=== PATIENT | male | born 1955 | race Caucasian/White ===

== ENCOUNTER 2017-10-29 06:17 | Emergency (ER) | payer MEDICARE, OTHER ==
--- NOTE | 2017-10-29 07:09 | EDM.PDOC ---
ED HPI GENERAL MEDICAL PROBLEM - General Chief Complaint: Head Injury Stated Complaint: HEADACHE - History of Present Illness Treatments RN ANGIOGRAPHY: Reports: NSAIDS Frontal Headache Pain Score (Numeric/FACES): 6 - Related Data Allergies Allergy/AdvReac Type Severity Reaction Status Date / Time No Known Allergies Allergy Verified 10/29/17 06:57 Home Meds: Home Meds Cyclobenzaprine [Flexeril] 5 mg PO TID PRN 02/14/14 [History] FLUoxetine HCl [Fluoxetine HCl] 40 cap PO DAILY 02/14/14 [History] Fenofibrate,Micronized [Fenofibrate] 2 cap PO DAILY 02/14/14 [History] Fluticasone/Salmeterol [Advair 250-50 Diskus] 1 puff INH BID 02/14/14 [History] Hydrochlorothiazide/Losartan [Hyzaar 50-12.5 MG] 1 tab PO DAILY 02/14/14 [ History] Lurasidone [Latuda] 20 mg PO DAILY 02/14/14 [History] Omeprazole 20 mg PO BEDTIME 02/14/14 [History] Tamsulosin HCl 1 tab PO QAM 02/14/14 [History] atorvaSTATin [Lipitor] 20 mg PO BEDTIME 02/14/14 [History] buPROPion HCl [Bupropion HCl Sr] 150 mg PO DAILY 02/14/14 [History] traMADol [Ultram] 1 - 2 tab PO Q4HR PRN 02/14/14 [History] Hydrocodone/Acetaminophen [Hydrocodone-Acetaminophen 5-325] 1 tab PO Q6H PRN 02/21 [History] Sennosides/Docusate Sodium [Senokot-S Tablet] 1 tab PO BID 05/07/14 [History] Past Medical History HEENT History: Reports: Hard of Hearing, Sinusitis, Other (See Below) Other HEENT History: poor dentition Cardiovascular History: Reports: CAD, High Cholesterol, Hypertension Respiratory History: Reports: COPD Gastrointestinal History: Reports: GERD Psychiatric History: Reports: Anxiety, Depression Endocrine/Metabolic History: Reports: Obesity/BMI 30+ - Past Surgical History GI Surgical History: Reports: Cholecystectomy Social & Family History - Tobacco Use Smoking Status *Q: Current Every Day Smoker Years of Tobacco use: 30 Packs/Tins Daily: 1 - Caffeine Use Caffeine Use: Reports: Soda - Alcohol Use Days Per Week of Alcohol Use: 0 - Recreational Drug Use Recreational Drug Use: No Course - Vital Signs Last Recorded V/S: Last Vital Signs Temp 36.6 C 10/29/17 06:40 Pulse Resp 19 10/29/17 06:40 BP 125/69 10/29/17 06:40 Pulse Ox 97 10/29/17 06:40 - Orders/Labs/Meds Orders: Active Orders 24 hr Category Date Time Status INFLUENZA A+B AG SCREEN [RM] Stat Lab 10/29/17 07:01 Ordered Ketorolac [Toradol] Med 10/29/17 07:02 Once 30 mg IM ONETIME ONE Departure - Discharge Information Referrals: Darien Haddad MD [Primary Care Provider] - - My Orders Last 24 Hours: My Active Orders 10/29/17 07:01 INFLUENZA A+B AG SCREEN [RM] Stat 10/29/17 07:02 Ketorolac [Toradol] 30 mg IM ONETIME ONE - Assessment/Plan Last 24 Hours: My Active Orders 10/29/17 07:01 INFLUENZA A+B AG SCREEN [RM] Stat 10/29/17 07:02 Ketorolac [Toradol] 30 mg IM ONETIME ONE
--- NOTE | 2017-10-29 07:17 | EDM.PDOC ---
ED HPI GENERAL MEDICAL PROBLEM - General Chief Complaint: Respiratory Problem Stated Complaint: Cough, congestion, migraine Time Seen by Provider: 10/29/17 07:00 Source of Information: Reports: Patient History Limitations: Reports: No Limitations - History of Present Illness INITIAL COMMENTS - FREE TEXT/NARRATIVE: Complains of cough and congestion x 2 days and frontal headache (typical migraine) x 2 hours Duration: Day(s): (2) Location: Reports: Head Quality: Reports: Ache Severity: Moderate Treatments SACK KEEPER: Reports: NSAIDS Frontal Headache Pain Score (Numeric/FACES): 6 - Related Data Allergies Allergy/AdvReac Type Severity Reaction Status Date / Time No Known Allergies Allergy Verified 10/29/17 06:57 Home Meds: Home Meds atorvaSTATin [Lipitor] 20 mg PO BEDTIME 02/14/14 [History] Albuterol [Ventolin HFA] 2 puff INH Q4H PRN 10/29/17 [History] Albuterol/Ipratropium [DuoNeb 3.0-0.5 MG/3 ML] 3 ml NEB BID 10/29/17 [History] Aspirin [Halfprin] 162 mg PO DAILY 10/29/17 [History] Budesonide/Formoterol [Symbicort 160-4.5 MCG] 2 puff INH BID 10/29/17 [History] FLUoxetine [PROzac] 40 mg PO DAILY 10/29/17 [History] Furosemide 20 mg PO DAILY 10/29/17 [History] Gemfibrozil 600 mg PO BIDAC 10/29/17 [History] Hydrochlorothiazide/Losartan [Hyzaar 50-12.5 MG] 1 tab PO DAILY 10/29/17 [ History] Omeprazole 40 mg PO BEDTIME 10/29/17 [History] Zolpidem Tartrate [Ambien] 15 mg PO BEDTIME PRN 10/29/17 [History] atorvaSTATin [Lipitor] 40 mg PO BEDTIME 10/29/17 [History] hydrOXYzine Pamoate [Vistaril] 25 mg PO TID 10/29/17 [History] risperiDONE [Risperdal] 1.5 mg PO BEDTIME 10/29/17 [History] Past Medical History - Past Health History Medical/Surgical History: Denies Medical/Surgical History HEENT History: Reports: Hard of Hearing, Sinusitis, Other (See Below) Other HEENT History: poor dentition Cardiovascular History: Reports: CAD, High Cholesterol, Hypertension Respiratory History: Reports: Asthma, COPD Gastrointestinal History: Reports: GERD Psychiatric History: Reports: Anxiety, Depression Endocrine/Metabolic History: Reports: Obesity/BMI 30+ - Past Surgical History GI Surgical History: Reports: Cholecystectomy Social & Family History - Tobacco Use Smoking Status *Q: Current Every Day Smoker Tobacco Use Within Last Twelve Months: Cigarettes Years of Tobacco use: 30 Packs/Tins Daily: 1 - Caffeine Use Caffeine Use: Reports: Soda - Alcohol Use Days Per Week of Alcohol Use: 0 - Recreational Drug Use Recreational Drug Use: No ED ROS GENERAL - Review of Systems Review Of Systems: See Below Constitutional: Reports: Chills. Denies: Fever HEENT: Reports: Other (congestion) Respiratory: Reports: Cough Cardiovascular: Reports: No Symptoms Endocrine: Reports: No Symptoms GI/Abdominal: Reports: No Symptoms : Reports: No Symptoms Musculoskeletal: Reports: No Symptoms Skin: Reports: No Symptoms Neurological: Reports: Headache (frontal) Psychiatric: Reports: No Symptoms Hematologic/Lymphatic: Reports: No Symptoms Immunologic: Reports: No Symptoms ED EXAM, GENERAL - Physical Exam Exam: See Below Exam Limited By: No Limitations General Appearance: Alert, WD/WN, No Apparent Distress Eye Exam: Bilateral Eye: EOMI, PERRL Nose: Normal Inspection, Normal Mucosa, No Blood Throat/Mouth: Normal Inspection, Normal Lips, Normal Teeth, Normal Gums, Normal Oropharynx, Normal Voice, No Airway Compromise Head: Atraumatic, Normocephalic Neck: Normal Inspection, Supple, Full Range of Motion Respiratory/Chest: No Respiratory Distress, Lungs Clear, Normal Breath Sounds, No Accessory Muscle Use, Chest Non-Tender Cardiovascular: Regular Rate, Rhythm, No Gallop, No JVD, No Murmur, No Rub Neurological: Alert, Oriented Psychiatric: Normal Affect, Normal Mood Skin Exam: Warm, Dry, Intact, Normal Color, No Rash Course - Vital Signs Last Recorded V/S: Last Vital Signs Temp 36.6 C 10/29/17 06:40 Pulse Resp 19 10/29/17 06:40 BP 125/69 10/29/17 06:40 Pulse Ox 97 10/29/17 06:40 - Orders/Labs/Meds Orders: Active Orders 24 hr Category Date Time Status INFLUENZA A+B AG SCREEN [RM] Stat Lab 10/29/17 07:20 Ordered Meds: Medications Discontinued Medications Generic Name Dose Route Start Last Admin Trade Name Joel PRN Reason Stop Dose Admin Ketorolac Tromethamine 30 mg 10/29/17 07:02 10/29/17 07:19 Toradol IM 10/29/17 07:03 30 mg ONETIME ONE Administration - Re-Assessments/Exams Free Text/Narrative Re-Assessment/Exam: 10/29/17 08:08 Headache has improved after Toradol 30mg IM. Departure - Departure Time of Disposition: 08:09 Disposition: Home, Self-Care 01 Condition: Good Clinical Impression: Migraine, Viral URI - Discharge Information Instructions: Migraine Headache, [id number], Upper Respiratory Infection, Adult, [id number] Referrals: Darien Haddad MD [Primary Care Provider] - Forms: ED Department Discharge Additional Instructions: Take OTC Mucinex as needed for congestion and cough - My Orders Last 24 Hours: My Active Orders 10/29/17 07:20 INFLUENZA A+B AG SCREEN [RM] Stat - Assessment/Plan Last 24 Hours: My Active Orders 10/29/17 07:20 INFLUENZA A+B AG SCREEN [RM] Stat
[2017-10-29] MEDS: Ketorolac 30 MG/ML SDV IM ONE (07:19)
[2017-10-29 08:11] VITALS: BP 127/72
== END 2017-10-29 08:18 | disposition home or self-care (01) ==
LOC: FB.ED 06:17
DX: G43.809 Other migraine, not intractable, without status migrainosus (principal); J06.9 Acute upper respiratory infection, unspecified; I25.10 Atherosclerotic heart disease of native coronary artery without angina pectoris; J44.9 Chronic obstructive pulmonary disease, unspecified; E78.00 Pure hypercholesterolemia, unspecified; I10 Essential (primary) hypertension; K21.9 Gastro-esophageal reflux disease without esophagitis; F41.9 Anxiety disorder, unspecified; F32.9 Major depressive disorder, single episode, unspecified; F17.210 Nicotine dependence, cigarettes, uncomplicated; Z79.899 Other long term (current) drug therapy; Z79.82 Long term (current) use of aspirin; Z68.41 Body mass index [BMI] 40.0-44.9, adult
CPT/HCPCS: 87804; 96372; 99282; 99283; J1885

== ENCOUNTER 2019-03-15 06:42 | Day surgery (SDC) | payer MEDICARE, OTHER ==
[2019-03-15] MEDS ORDERED: Propofol 200 MG/20 ML SDV IV ONE (06:43)
[2019-03-15] MEDS ORDERED: Midazolam 1 MG/ML 2 ML SDV IV ONE (06:43)
[2019-03-15] MEDS ORDERED: Sodium Chloride 0.9% 10 ML Syringe FLUSH PRN (07:00)
[2019-03-15] MEDS ORDERED: Lactated Ringers 1,000 ML IV SCH (07:00)
--- NOTE | 2019-03-15 09:07 | PCM.OPNOTE ---
- General Post-Op/Procedure Note Date of Surgery/Procedure: 03/15/19 Operative Procedure(s): c scope with bx Findings: colon polyps: transverse x6, descending x1, sigmoid x1, rectum x1 marginal prep descending colon Pre Op Diagnosis: personal hx of colon polyps Post-Op Diagnosis: transverse x6, descending x1, sigmoid x1, rectum x1 Anesthesia Technique: MAC Primary Surgeon: Gaurav Evans Anesthesia Provider: Alondra Wang Pathology: transverse x6, descending x1, sigmoid x1, rectum x1 Complications: None Condition: Good Free Text/Narrative:: see dictation
[2019-03-15 09:47] VITALS: BP 143/62; PULSE 70
--- NOTE | 2019-03-15 10:46 | OR ---
DATE OF OPERATION: 03/15/2019 SURGEON: Gaurav Evans MD PROCEDURE PERFORMED: Colonoscopy with cold forceps and hot loop snare biopsy. PREOPERATIVE DIAGNOSIS: Personal history of multiple colon polyps. POSTOPERATIVE DIAGNOSIS: Transverse colon polyps x6, descending colon polyps x1, sigmoid colon polyps x2, rectum polyp x1. INDICATIONS FOR PROCEDURE: This is a 63-year-old white male who presented for followup. He has a history of multiple colon polyps in the past. It has been 3 years since his last scope. DESCRIPTION OF OPERATION: After an excellent IV sedation was administered, digital rectal exam was performed. No marked abnormality was noted. Flexible colonoscope was inserted and advanced to the cecum. The following findings were noted. Ascending colon was unremarkable. Transverse colon, a total of 6 polyps were removed within a 4 cm section of the intestine with a combination of cold forceps biopsy and hot loop snare. Descending colon and sigmoid demonstrated area of poor prep with solid stool and liquid stool. We were able to get a view of approximately half of the colon and 1 polyp was removed from the descending colon and 2 polyps removed from the sigmoid. The rectum demonstrated 1 polyp, which was biopsied with cold biopsy forceps. The patient tolerated the procedure well and was taken to recovery in good condition. Results by letter. At this point, it appears he will need a colonoscopy at least in 1 year. /[id number] /MODL
== END 2019-03-15 09:43 | disposition home or self-care (01) ==
LOC: FB.SDS 06:42
PROVIDERS: ATTEND Surgery
DX: Z12.11 Encounter for screening for malignant neoplasm of colon (principal); D12.3 Benign neoplasm of transverse colon; D12.4 Benign neoplasm of descending colon; K63.5 Polyp of colon; K62.1 Rectal polyp; K21.9 Gastro-esophageal reflux disease without esophagitis; K22.70 Barrett's esophagus without dysplasia; I25.10 Atherosclerotic heart disease of native coronary artery without angina pectoris; I10 Essential (primary) hypertension; E78.00 Pure hypercholesterolemia, unspecified; J45.909 Unspecified asthma, uncomplicated; F17.210 Nicotine dependence, cigarettes, uncomplicated; F31.9 Bipolar disorder, unspecified; F41.1 Generalized anxiety disorder; G47.33 Obstructive sleep apnea (adult) (pediatric); G43.909 Migraine, unspecified, not intractable, without status migrainosus; G25.81 Restless legs syndrome; N40.0 Benign prostatic hyperplasia without lower urinary tract symptoms; M19.90 Unspecified osteoarthritis, unspecified site; Z86.010 Personal history of colon polyps; Z79.82 Long term (current) use of aspirin; Z79.51 Long term (current) use of inhaled steroids; Z79.899 Other long term (current) drug therapy
CPT/HCPCS: 00811; 45380; 45385; 88305; J2250; J2704; J7120

== ENCOUNTER 2019-04-04 06:37 | Day surgery (SDC) | payer MEDICARE, OTHER ==
[2019-04-04] MEDS ORDERED: fentaNYL 100 MCG/2 ML SDV IV ONE (06:38)
[2019-04-04] MEDS ORDERED: Propofol 200 MG/20 ML SDV IV ONE (06:38)
[2019-04-04] MEDS ORDERED: Ondansetron 4 MG/2 ML SDV IVPUSH ONE (06:38)
[2019-04-04] MEDS ORDERED: Bupivacaine 0.5% 10 ML SDV INJECT ONE (06:38)
[2019-04-04] MEDS ORDERED: Midazolam 1 MG/ML 2 ML SDV IV ONE (06:38)
[2019-04-04] MEDS ORDERED: Dexamethasone 4 MG/ML 5 ML MDV IVPUSH ONE (06:38)
[2019-04-04] MEDS ORDERED: Ketorolac 30 MG/ML SDV IVPUSH ONE (06:38)
[2019-04-04] MEDS ORDERED: Sodium Chloride 0.9% 10 ML Syringe FLUSH PRN (06:45)
[2019-04-04] MEDS ORDERED: Lactated Ringers 1,000 ML IV SCH (06:45)
[2019-04-04] MEDS ORDERED: Bupivacaine 0.5% 30 ML SDV INJECT ONE (08:33)
--- NOTE | 2019-04-04 09:08 | PCM.OPNOTE ---
- General Post-Op/Procedure Note Date of Surgery/Procedure: 04/04/19 Operative Procedure(s): excision of sqcca in situ of right middle finger Findings: 1.5 x 2 cm lesion with 1 mm margin Pre Op Diagnosis: SqCCa in situ right middle finger. mip joint Post-Op Diagnosis: Same Anesthesia Technique: Local (3 ml 1 % lido with 0.5% buvipicaine over donor site ), MAC Primary Surgeon: Gaurav Evans Anesthesia Provider: Darien Mohan Pathology: 1.5 x 2 cm lesion with 1 mm margin Complications: None Condition: Good Free Text/Narrative:: see dictation
[2019-04-04] MEDS ORDERED: Acetaminophen/Codeine 300-30 MG Tab PO PRN (09:10)
[2019-04-04 10:04] VITALS: BP 126/78; PULSE 73
--- NOTE | 2019-04-04 15:16 | OR ---
DATE OF OPERATION: 04/04/2019 SURGEON: Gaurav Evans MD PROCEDURE PERFORMED: Excision of squamous cell carcinoma in situ of his right middle finger and full-thickness skin graft. 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 INDICATIONS FOR PROCEDURE: This is a 63-year-old white male with a 40 pack year smoking history. He has a growth over his MIP joint on the right and on the volar surface of the right hand. This is over the area where he has been resting his cigarette. Punch biopsy was obtained and revealed squamous cell carcinoma in situ. He was offered and accepted excision of this lesion. INTRAOPERATIVE FINDINGS: The lesion was roughly 1.5 x 2 cm in size. 1 mm margin was made. A digital field block as well as a local MAC was placed by Anesthesia and then 3 mL of 1:1 mixture of 1% lidocaine plain, 0.5% bupivacaine was used for donor site on the dorsum of his right forearm. DESCRIPTION OF OPERATION: After the above-mentioned anesthetic was administered, the patient was prepped and draped in the usual sterile manner. 1 mm margins were marked out and a circular incision was carried out, excising the lesion. Specimen was passed off the field after marking the posterior and distal margins. Bleeding was controlled with electrocautery. Unfortunately, he had some good blood flow. A roughly 1 cm area was marked out on the dorsum of the forearm and after infiltrating with local, an elliptical incision was carried out. This was then passed after trimming off the posterior fat. This full-thickness piece of skin was placed through a 3:1 mesher and then placed on the floor of the graft site. This was then tacked into position with interrupted 3-0 Vicryl. Bolsters were then placed circumferentially around the edges of 3-0 silk. A piece of Xeroform was then placed over the skin graft rather and then a bulky dressing was placed anteriorly and then the silks were tied giving a nice bolster dressing. Then, this finger was wrapped with Kerlix. A bulky Kerlix included all the fingers and then an Akash wrap to prevent shear forces. A Band-Aid was placed over the donor site. The patient tolerated the procedure well and was taken to recovery room in good condition. /[id number] /DUSTINL
== END 2019-04-04 10:10 | disposition home or self-care (01) ==
LOC: FB.SDS 06:37
PROVIDERS: ATTEND Surgery
DX: D04.61 Carcinoma in situ of skin of right upper limb, including shoulder (principal); I25.10 Atherosclerotic heart disease of native coronary artery without angina pectoris; I10 Essential (primary) hypertension; E78.2 Mixed hyperlipidemia; J44.9 Chronic obstructive pulmonary disease, unspecified; K21.9 Gastro-esophageal reflux disease without esophagitis; K22.70 Barrett's esophagus without dysplasia; F17.210 Nicotine dependence, cigarettes, uncomplicated; F41.1 Generalized anxiety disorder; F33.9 Major depressive disorder, recurrent, unspecified; G47.33 Obstructive sleep apnea (adult) (pediatric); G43.909 Migraine, unspecified, not intractable, without status migrainosus; G25.81 Restless legs syndrome; M19.90 Unspecified osteoarthritis, unspecified site; N40.1 Benign prostatic hyperplasia with lower urinary tract symptoms; N13.8 Other obstructive and reflux uropathy; R73.03 Prediabetes; E66.01 Morbid (severe) obesity due to excess calories; Z68.42 Body mass index [BMI] 45.0-49.9, adult; Z99.89 Dependence on other enabling machines and devices; Z79.82 Long term (current) use of aspirin; Z79.899 Other long term (current) drug therapy
CPT/HCPCS: 00400-QZ; 88305; J1100; J1885; J2250; J2405; J2704; J3010; J3490; J7120

== ENCOUNTER 2019-08-17 03:01 | Emergency (ER) | payer MEDICARE, OTHER ==
[2019-08-17 03:24] VITALS: BP 156/83; PULSE 78
--- NOTE | 2019-08-17 03:33 | EDM.PDOC ---
ED HPI GENERAL MEDICAL PROBLEM - General Chief Complaint: Chest Pain Stated Complaint: chest pain Time Seen by Provider: 08/17/19 03:23 Source of Information: Reports: Patient History Limitations: Reports: No Limitations - History of Present Illness INITIAL COMMENTS - FREE TEXT/NARRATIVE: 64-year-old male with onset of sharp pains in his upper abdomen that seem to come and go. They began while he was sitting and watching TV. He does have a dull pain underneath that is and has been present for the past 3-4 hours he also has intermittent spikes of pain that are sharp. He rates the pain as a 6/ 10. Nothing really seemed to bring the pain on. He doesn't really seem to have anything that makes the pain better or worse. He has been eating and drinking normally. He has had no new cough. He does have a frequent cough that he describes as a smoker's cough. He does not feel that he is having any more shortness of breath than normal. He's had no nausea or vomiting. No fevers. He has been eating and drinking normally and eating and drinking did not seem to have any effect on this pain as well. No back pain. No weakness or dizziness. No other associated signs or symptoms. There are no other modifying factors. Onset: Today (3-4 hours ago), Gradual (With worsening with time) Duration: Getting Worse Location: Reports: Abdomen Quality: Reports: Ache, Sharp Severity: Moderate Improves with: Reports: None Worsens with: Reports: None Associated Symptoms: Reports: No Other Symptoms Treatments [employer]: Reports: Other (see below) (Nothing) - Related Data Allergies Allergy/AdvReac Type Severity Reaction Status Date / Time No Known Allergies Allergy Verified 08/17/19 03:24 Home Meds: Home Meds Aspirin [Halfprin] 81 mg PO DAILY 10/29/17 [History] Budesonide/Formoterol [Symbicort 160-4.5 MCG] 2 puff INH BID 10/29/17 [History] FLUoxetine [PROzac] 40 mg PO DAILY 10/29/17 [History] Furosemide 20 mg PO DAILY 10/29/17 [History] Gemfibrozil 600 mg PO BIDAC 10/29/17 [History] Hydrochlorothiazide/Losartan [Hyzaar 50-12.5 MG] 1 tab PO DAILY 10/29/17 [ History] Omeprazole 40 mg PO BEDTIME 10/29/17 [History] atorvaSTATin [Lipitor] 80 mg PO BEDTIME 10/29/17 [History] risperiDONE [Risperdal] 3 mg PO BEDTIME 10/29/17 [History] Gabapentin [Neurontin] 900 mg PO BEDTIME 03/14/19 [History] Multivitamins [Tab-A-Marisa] 1 each PO DAILY 03/14/19 [History] SUMAtriptan [Imitrex] 50 mg PO ASDIRECTED 03/14/19 [History] polyethylene glycoL 3350 [MiraLAX] 17 gm PO BID #1 cont 08/17/19 [Rx] Past Medical History HEENT History: Reports: Hard of Hearing, Impaired Vision, Sinusitis, Other (See Below) Other HEENT History: poor dentition, Epps's esophagus Cardiovascular History: Reports: CAD, High Cholesterol, Hypertension Other Cardiovascular History: CORONARY ATHEROSCLEROSIS Respiratory History: Reports: Asthma, COPD, Sleep Apnea Gastrointestinal History: Reports: Colon Polyp, GERD Other Gastrointestinal History: DIASTASIS OF RECTUS ABDOMINIS, EPPS'S ESPHAGUS W/ LOW GRADE DYSPLASIA Musculoskeletal History: Reports: Arthritis Other Musculoskeletal History: DEGENERATIVE DISC DISEASE, PERIODIC LIMB MOVEMENT , DIASTASIS OF RECTUS ABDOMINIS Neurological History: Reports: Migraines Other Neuro History: INSOMNIA Psychiatric History: Reports: Addiction, Anxiety, Bipolar, Depression Endocrine/Metabolic History: Reports: Obesity/BMI 30+ Other Endocrine/Metabolic History: PRE-DIABETIC - Infectious Disease History Infectious Disease History: Reports: Chicken Pox, Measles, Mumps - Past Surgical History GI Surgical History: Reports: Cholecystectomy, Colonoscopy, EGD, ERCP Other GI Surgeries/Procedures: KNEE SURGERY Other Male Surgeries/Procedures: IMPOTENCE OF ORGANIC ORIGIN, HYPERTROPHY OF PROSTATE W/ URINARY OBSTRUCTION, LUTS Musculoskeletal Surgical History: Reports: Arthroscopic Knee Social & Family History - Tobacco Use Smoking Status *Q: Current Every Day Smoker - Caffeine Use Caffeine Use: Reports: Soda - Alcohol Use Alcohol Use History: No - Living Situation & Occupation Living situation: Reports: Alone Occupation: Disabled ED ROS GENERAL - Review of Systems Review Of Systems: See Below Constitutional: Reports: No Symptoms HEENT: Reports: No Symptoms Respiratory: Reports: No Symptoms Cardiovascular: Reports: No Symptoms Endocrine: Reports: No Symptoms GI/Abdominal: Reports: Abdominal Pain. Denies: Nausea, Vomiting : Reports: No Symptoms Musculoskeletal: Reports: No Symptoms Skin: Reports: No Symptoms Neurological: Reports: No Symptoms ED EXAM, GENERAL - Physical Exam Exam: See Below Exam Limited By: No Limitations General Appearance: Alert, WD/WN, Moderate Distress Eye Exam: Bilateral Eye: EOMI, Normal Inspection, PERRL Ears: Normal External Exam, Hearing Grossly Normal Ear Exam: Bilateral Ear: Auricle Normal Nose: Normal Inspection, Normal Mucosa, No Blood Throat/Mouth: Normal Inspection, Normal Lips, Normal Oropharynx, Normal Voice, No Airway Compromise Head: Atraumatic, Normocephalic Neck: Normal Inspection, Supple, Non-Tender, Full Range of Motion Respiratory/Chest: No Respiratory Distress, No Accessory Muscle Use, Chest Non- Tender, Wheezing (Somewhat decreased air movement) Cardiovascular: Normal Peripheral Pulses, Regular Rate, Rhythm, No Murmur Peripheral Pulses: 2+: Radial (L), Radial (R), Dorsalis Pedis (L), Dorsalis Pedis (R) GI/Abdominal: Normal Bowel Sounds, Soft, Non-Tender, No Mass, Other (Protuberant ) Back Exam: Normal Inspection, Full Range of Motion Extremities: Normal Range of Motion, Normal Capillary Refill, Pedal Edema ( Trace to 1+ bilaterally) Neurological: Alert, Oriented, CN II-XII Intact, Normal Cognition, No Motor/ Sensory Deficits Skin Exam: Warm, Dry, Intact, Normal Color, No Rash EKG INTERPRETATION EKG Date: 08/17/19 Time: 03:07 Rhythm: NSR Rate (Beats/Min): 72 [place]: Normal P-Wave: Present QRS: Normal ST-T: Normal QT: Normal Comparison: No Change (No change from EKG performed on 03/20/2015.) EKG Interpretation Comments: 08/17/2019, 6:11 AM repeat EKG performed at this time shows a normal sinus rhythm with a rate of 78. There is a normal axis. The QTc is slightly prolonged but really there is no significant change from this EKG versus the previous EKG done today. Course - Vital Signs Last Recorded V/S: Last Vital Signs Temp 36.4 C 08/17/19 03:10 Pulse 78 08/17/19 03:10 Resp 16 08/17/19 03:10 BP 156/83 H 08/17/19 03:10 Pulse Ox 98 08/17/19 03:10 - Orders/Labs/Meds Orders: Active Orders 24 hr Category Date Time Status EKG Documentation Completion [RC] ASDIRECTED Care 08/17/19 03:47 Active EKG Documentation Completion [RC] ASDIRECTED Care 08/17/19 05:54 Active RT Aerosol Therapy [RC] ASDIRECTED Care 08/17/19 04:53 Active Abdomen Pelvis w Cont [CT] Stat Exams 08/17/19 04:57 Taken Chest 2V [CR] Stat Exams 08/17/19 03:45 Taken CULTURE URINE [RM] Stat Lab 08/17/19 06:34 Ordered Sodium Chloride 0.9% [Saline Flush] Med 08/17/19 03:45 Active 10 ml FLUSH ASDIRECTED PRN Peripheral IV Insertion Adult [OM.PC] Routine Oth 08/17/19 03:45 Ordered EKG 12 Lead [EK] Routine Ther 08/17/19 03:45 Ordered EKG 12 Lead [EK] Routine Ther 08/17/19 05:53 Ordered Medication Orders Sodium Chloride (Saline Flush) 10 ml FLUSH ASDIRECTED PRN PRN Reason: Keep Vein Open Last Admin: 08/17/19 06:06 Dose: 10 ml Admin: 08/17/19 05:10 Dose: 10 ml Admin: 08/17/19 05:05 Dose: 10 ml Labs: Laboratory Tests 08/17/19 08/17/19 08/17/19 Range/Units 03:55 03:55 03:55 WBC 10.8 (4.5-12.0) X10-3/uL RBC 4.48 (4.30-5.75) x10(6)uL Hgb 14.2 (13.5-17.8) g/dL Hct 42.0 (30.0-51.3) % MCV 93.9 (80-96) fL MCH 31.8 (27.7-33.6) pg MCHC 33.9 (32.2-35.4) g/dL RDW 13.8 (11.5-15.5) % Plt Count 335 (125-369) X10(3)uL MPV 7.5 (7.4-10.4) fL Neut % (Auto) 70.6 (46-82) % Lymph % (Auto) 20.2 (13-37) % Mathews % (Auto) 7.4 (4-12) % Eos % (Auto) 1 (1.0-5.0) % Baso % (Auto) 1 (0-2) % Neut # (Auto) 7.6 (1.6-8.3) # Lymph # (Auto) 2.2 (0.6-5.0) # Mathews # (Auto) 0.8 (0.0-1.3) # Eos # (Auto) 0.1 (0.0-0.8) # Baso # (Auto) 0.1 (0.0-0.2) # Sodium 144 (135-145) mmol/L Potassium 3.4 L (3.5-5.3) mmol/L Chloride 104 (100-110) mmol/L Carbon Dioxide 29 (21-32) mmol/L BUN 17 (7-18) mg/dL Creatinine 1.2 (0.70-1.30) mg/dL Est Cr Clr Drug Dosing TNP Estimated GFR (MDRD) > 60 (>60) BUN/Creatinine Ratio 14.2 (9-20) Glucose 149 H (80-116) mg/dL Calcium 8.9 (8.6-10.2) mg/dL Total Bilirubin 0.3 (0.1-1.3) mg/dL AST 16 (5-25) IU/L ALT 27 (12-36) U/L Alkaline Phosphatase 87 (56-112) IU/L Troponin I 7.6 (4.0-60.3) pg/mL Total Protein 7.4 (6.0-8.0) g/dL Albumin 3.8 (3.2-4.6) g/dL Globulin 3.6 g/dL Albumin/Globulin Ratio 1.1 Lipase 153 (73-393) U/L Urine Color (YELLOW) Urine Appearance (CLEAR) Urine pH (5.0-6.5) Ur Specific [place] (1.010-1.025) Urine Protein (NEGATIVE) mg/dL Urine Glucose (UA) (NORMAL) mg/dL Urine Ketones (NEGATIVE) mg/dL Urine Occult Blood (NEGATIVE) Urine Nitrite (NEGATIVE) Urine Bilirubin (NEGATIVE) Urine Urobilinogen (NEGATIVE) mg/dL Ur Leukocyte Esterase (NEGATIVE) Urine RBC (0-5) Urine WBC (0-5) Ur Squamous Epith Cells (NS,R,O) Urine Bacteria (NS) 08/17/19 08/17/19 Range/Units 04:35 06:05 WBC (4.5-12.0) X10-3/uL RBC (4.30-5.75) x10(6)uL Hgb (13.5-17.8) g/dL Hct (30.0-51.3) % MCV (80-96) fL MCH (27.7-33.6) pg MCHC (32.2-35.4) g/dL RDW (11.5-15.5) % Plt Count (125-369) X10(3)uL MPV (7.4-10.4) fL Neut % (Auto) (46-82) % Lymph % (Auto) (13-37) % Mathews % (Auto) (4-12) % Eos % (Auto) (1.0-5.0) % Baso % (Auto) (0-2) % Neut # (Auto) (1.6-8.3) # Lymph # (Auto) (0.6-5.0) # Mathews # (Auto) (0.0-1.3) # Eos # (Auto) (0.0-0.8) # Baso # (Auto) (0.0-0.2) # Sodium (135-145) mmol/L Potassium (3.5-5.3) mmol/L Chloride (100-110) mmol/L Carbon Dioxide (21-32) mmol/L BUN (7-18) mg/dL Creatinine (0.70-1.30) mg/dL Est Cr Clr Drug Dosing Estimated GFR (MDRD) (>60) BUN/Creatinine Ratio (9-20) Glucose (80-116) mg/dL Calcium (8.6-10.2) mg/dL Total Bilirubin (0.1-1.3) mg/dL AST (5-25) IU/L ALT (12-36) U/L Alkaline Phosphatase (56-112) IU/L Troponin I 7.8 (4.0-60.3) pg/mL Total Protein (6.0-8.0) g/dL Albumin (3.2-4.6) g/dL Globulin g/dL Albumin/Globulin Ratio Lipase (73-393) U/L Urine Color Yellow (YELLOW) Urine Appearance Clear (CLEAR) Urine pH 6.0 (5.0-6.5) Ur Specific [place] 1.025 (1.010-1.025) Urine Protein Negative (NEGATIVE) mg/dL Urine Glucose (UA) Normal (NORMAL) mg/dL Urine Ketones Negative (NEGATIVE) mg/dL Urine Occult Blood Moderate H (NEGATIVE) Urine Nitrite Positive H (NEGATIVE) Urine Bilirubin Negative (NEGATIVE) Urine Urobilinogen Normal (NEGATIVE) mg/dL Ur Leukocyte Esterase Negative (NEGATIVE) Urine RBC 0-5 (0-5) Urine WBC 0-5 (0-5) Ur Squamous Epith Cells Occasional (NS,R,O) Urine Bacteria Few H (NS) Meds: Medications Generic Name Dose Route Start Last Admin Trade Name Freq PRN Reason Stop Dose Admin Sodium Chloride 10 ml 08/17/19 03:45 08/17/19 06:06 Saline Flush FLUSH 10 ml ASDIRECTED PRN Administration Keep Vein Open Discontinued Medications Generic Name Dose Route Start Last Admin Trade Name Freq PRN Reason Stop Dose Admin Albuterol/Ipratropium 3 ml 08/17/19 04:53 08/17/19 05:00 Duoneb 3.0-0.5 Mg/3 Ml NEB 08/17/19 04:54 3 ml ONETIME ONE Administration Aspirin 324 mg 08/17/19 03:47 08/17/19 03:47 Aspirin PO 08/17/19 03:48 324 mg ONETIME ONE Administration Sodium Chloride 500 mls @ 999 mls/hr 08/17/19 04:56 08/17/19 05:55 Normal Saline IV 08/17/19 05:26 999 mls/hr .BOLUS ONE Administration Iopamidol 100 ml 08/17/19 05:00 08/17/19 05:19 Isovue-370 (76%) IV 08/17/19 05:01 100 ml . DIRECTED ONE Administration Morphine Sulfate 4 mg 08/17/19 04:55 08/17/19 05:07 Morphine IVPUSH 08/17/19 04:56 4 mg ONETIME ONE Administration Morphine Sulfate Confirm 08/17/19 05:07 08/17/19 05:11 Morphine Administered 08/17/19 05:08 Not Given Dose 2 mg .ROUTE .STK-MED ONE Morphine Sulfate 4 mg 08/17/19 05:54 08/17/19 06:03 Morphine IVPUSH 08/17/19 05:55 4 mg ONETIME ONE Administration Ondansetron HCl 4 mg 08/17/19 04:55 08/17/19 05:01 Zofran IVPUSH 08/17/19 04:56 4 mg ONETIME ONE Administration - Radiology Interpretation Free Text/Narrative:: Portable chest x-ray showed COPD but no acute disease. CT scan of abdomen and pelvis showed no specific identified cause of the patient 's abdominal pain. He is status post cholecystectomy and has pneumobilia which she has had before on other scans. It is appendicitis. There is evidence of pulmonary emphysema. This was per the radiologist. - Re-Assessments/Exams Free Text/Narrative Re-Assessment/Exam: 08/17/19 05:50: Patient still has pain in his upper abdomen that seems to be sharp and come in waves. His pain is a 4/10 after the initial dose of morphine. The CT scan of his abdomen and pelvis is pending at this point. I will plan on giving the patient another dose of morphine IV but I will also repeat his EKG and repeat his troponin at this time. 08/17/19 06:30: The EKG is again reassuringly normal. He has received another morphine 4 mg IV and his pain is now completely gone. CT scan of his abdomen and pelvis showed no acute abnormality and, specifically, it did not identify the cause of the patient's abdominal pain. I am awaiting the repeat troponin. If it is normal, the patient will be discharged. 08/17/19 06:38: Repeat troponin is negative and unchanged from previous. He is pain free at present. I'm unsure why he is having the upper abdominal pain. It is possible that it could represent some mild constipation. I am going to give him a prescription of MiraLAX that he continues to try to leave any constipation that he may have. I also sent his urine for culture. He is to follow-up with his primary doctor this next week. Back to the emergency department for recurrent/worsening abdominal pain. Departure - Departure Time of Disposition: 06:45 Disposition: Home, Self-Care 01 Condition: Good (Improved) Clinical Impression: Abdominal pain of unknown etiology COPD (chronic obstructive pulmonary disease) Qualifiers: COPD type: unspecified COPD Qualified Code(s): J44.9 - Chronic obstructive pulmonary disease, unspecified Prescriptions: polyethylene glycoL 3350 [MiraLAX] 17 gm PO BID #1 cont Instructions: Abdominal Pain, Adult, [id number] Referrals: Darien Haddad MD [Primary Care Provider] - Forms: ED Department Discharge Additional Instructions: Your blood tests were all reassuringly normal. Your EKG was normal 2 and your heart is on tests and a repeat heart enzyme test were both normal. The CT scan of your abdomen and pelvis did not show any acute abnormality that would explain your abdominal pain. You do have evidence of COPD or emphysema. You need to follow-up with your primary doctor this next week. You should increase your fluid intake. MiraLAX, 2 doses daily until you have good cleanout results at bowel movement. You also need to stop smoking. Back to the emergency department for vomiting, high fever, worsening abdominal pain, difficulty breathing or any other concerning sign or symptom. Sepsis Event Note - Evaluation Sepsis Screening Result: No Definite Risk - Focused Exam Vital Signs: Vital Signs Temp Pulse Resp BP Pulse Ox 08/17/19 03:10 36.4 C 78 16 156/83 H 98 Date Exam was Performed: 08/17/19 Time Exam was Performed: 06:47 - My Orders Last 24 Hours: My Active Orders 08/17/19 03:45 Chest 2V [CR] Stat Sodium Chloride 0.9% [Saline Flush] 10 ml FLUSH ASDIRECTED PRN Peripheral IV Insertion Adult [OM.PC] Routine EKG 12 Lead [EK] Routine 08/17/19 03:47 EKG Documentation Completion [RC] ASDIRECTED 08/17/19 04:53 RT Aerosol Therapy [RC] ASDIRECTED 08/17/19 04:57 Abdomen Pelvis w Cont [CT] Stat 08/17/19 05:53 EKG 12 Lead [EK] Routine 08/17/19 05:54 EKG Documentation Completion [RC] ASDIRECTED 08/17/19 06:34 CULTURE URINE [RM] Stat - Assessment/Plan Last 24 Hours: My Active Orders 08/17/19 03:45 Chest 2V [CR] Stat Sodium Chloride 0.9% [Saline Flush] 10 ml FLUSH ASDIRECTED PRN Peripheral IV Insertion Adult [OM.PC] Routine EKG 12 Lead [EK] Routine 08/17/19 03:47 EKG Documentation Completion [RC] ASDIRECTED 08/17/19 04:53 RT Aerosol Therapy [RC] ASDIRECTED 08/17/19 04:57 Abdomen Pelvis w Cont [CT] Stat 08/17/19 05:53 EKG 12 Lead [EK] Routine 08/17/19 05:54 EKG Documentation Completion [RC] ASDIRECTED 08/17/19 06:34 CULTURE URINE [RM] Stat
[2019-08-17] MEDS ORDERED: Aspirin 81 MG Tab.Chew PO ONE (03:47)
[2019-08-17] MEDS ORDERED: Albuterol/Ipratropium 3.0-0.5 MG/3 ML Neb Soln NEB ONE (04:53)
[2019-08-17] MEDS ORDERED: Morphine 2 MG/ML SYRINGE IVPUSH ONE ×2 (04:55→05:54)
[2019-08-17] MEDS ORDERED: Ondansetron 4 MG/2 ML SDV IVPUSH ONE (04:55)
[2019-08-17] MEDS ORDERED: Sodium Chloride 0.9% 500 ML IV ONE (04:56)
[2019-08-17] MEDS ORDERED: Iopamidol 755 Mg/ML 100 ML Bottle IV ONE (05:00)
[2019-08-17] MEDS: Sodium Chloride 0.9% 10 ML Syringe FLUSH PRN ×3 (05:05→06:06)
[2019-08-17] MEDS ORDERED: Morphine 2 MG/ML SYRINGE ONE (05:07)
--- NOTE | 2019-08-17 12:22 | CR ---
INDICATION: Upper abdominal pain. CHEST, 2 VIEWS: PA and 2 lateral views of the chest were obtained 08/17/19 and compared with 09/21/11 and 09/16/08. No free air is noted under the hemidiaphragm leaves. Overlying EKG leads are noted. The heart appeared normal in size and shape. The aorta is minimally calcified in the arch area. Degenerative changes are noted in the [id number] middle thoracic spine. Findings remain compatible with exogenous obesity and COPD. What appears to be a prominent epicardial fat pad is now seen at the left cardiophrenic angle. Pulmonary markings overall appear similar to the previous examination without a consolidating pneumonia or effusion. Markings are somewhat prominent at the lung bases - lower lung [place], however, making it difficult to entire exclude minimal patchy bronchopneumonia - correlate clinically. IMPRESSION: 1. No definite acute process but difficult to exclude minimal patchy bronchopneumonia at the lung bases. 2. ASD aorta. 3. COPD is likely. 4. Exogenous obesity. 5. DJD spine. MTDD
== END 2019-08-17 06:55 | disposition home or self-care (01) ==
LOC: FB.ED 03:01
DX: J44.9 Chronic obstructive pulmonary disease, unspecified (principal); R10.9 Unspecified abdominal pain; F17.210 Nicotine dependence, cigarettes, uncomplicated
CPT/HCPCS: 36415; 71046; 74177; 80053; 81001; 83690; 84484; 85025; 87086; 93005; 93010; 94640; 96361; 96374; 96375; 96376; 99284; 99285; A9270; J2270; J2405; J7040; Q9967; J7620-GY

== ENCOUNTER 2020-03-19 07:38 | Day surgery (SDC) | payer MEDICARE, OTHER ==
[2020-03-19] MEDS ORDERED: Propofol 200 MG/20 ML SDV IV ONE (07:39)
[2020-03-19] MEDS ORDERED: Midazolam 1 MG/ML 2 ML SDV IV ONE (07:39)
[2020-03-19] MEDS ORDERED: Lidocaine 2% 5 ML SDV INJECT ONE (07:39)
[2020-03-19] MEDS ORDERED: Sodium Chloride 0.9% 10 ML Syringe FLUSH PRN (07:45)
[2020-03-19] MEDS ORDERED: Lactated Ringers 1,000 ML IV SCH (07:45)
[2020-03-19] MEDS ORDERED: Albuterol/Ipratropium 3.0-0.5 MG/3 ML Neb Soln NEB ONE (08:14)
[2020-03-19] MEDS ORDERED: Simethicone Drops 40 MG/0.6 ML 30 ML Bottle ONE (09:39)
--- NOTE | 2020-03-19 09:57 | PCM.OPNOTE ---
- General Post-Op/Procedure Note Date of Surgery/Procedure: 03/19/20 Operative Procedure(s): egd with biopsy. c scope with biopys Findings: ? gastric polyp ? island of intestinal metaplasia transverse and descending colon polyp Pre Op Diagnosis: hx of Dailey's esophagus. hs of colon polyps Post-Op Diagnosis: gastric polyp. colon polyps x2 Anesthesia Technique: MAC Primary Surgeon: Gaurav Evans Anesthesia Provider: Alondra Wang Pathology: stomach distal esophagus colon polyps x2 transverse and descending colon Complications: None Condition: Good Free Text/Narrative:: see dictation
[2020-03-19 10:33] VITALS: BP 132/79; PULSE 80
--- NOTE | 2020-03-20 07:52 | OR ---
DATE OF OPERATION: 03/19/2020 SURGEON: Gaurav Evans MD PROCEDURES PERFORMED: Esophagogastroduodenoscopy with cold forceps biopsy and colonoscopy with cold forceps and cold loop biopsy. PREOPERATIVE DIAGNOSES: 1. Personal history of Dailey's esophagus, status post ablative therapy. 2. Personal history of colon polyps. INDICATIONS FOR PROCEDURE: Mr. Ba is a 64-year-old white male who underwent photoablative therapy of his Dailey's esophagus for some dysplasia. Last EGD was negative for Dailey's. In addition last year, he had greater than 4 adenomata removed from his colon and presents for a followup colonoscopy and, due to his history of Dailey's and its treatment, was also offered and accepted an EGD. DESCRIPTION OF PROCEDURE: After an excellent IV sedation was administered, the bite block was inserted. Flexible endoscope was passed without difficulty down the patient's esophagus into the stomach. Stomach was insufflated. Scope passed through the pylorus to the second portion of duodenum and slowly withdrawn. The following findings were noted: Duodenum unremarkable. Stomach demonstrated what appeared to be some gastritis, possible polypoid lesion versus a fold in the area of the pylorus. Biopsies were taken of this area. GE junction measured at 40 cm. Esophageal exam: There were 1 or 2 little areas of what appeared to be possible islands of intestinal metaplasia, these were biopsied. Remainder of the esophageal exam was unremarkable. Our attention was then turned to the colon. Digital rectal exam was performed. No marked abnormality was noted. Flexible colonoscope was inserted and advanced to the cecum. Prep excellent. Following findings were noted: Ascending colon, unremarkable. Transverse colon, small polypoid lesion, biopsied with cold biopsy forceps and completely obliterated, submitted in 1 container. Descending colon, small polyp. This was biopsied with a combination of cold loop and cold forceps biopsies and submitted in 1 container. Sigmoid and rectum, unremarkable. Results will be sent to the patient via letter. /[id number] /MODL
== END 2020-03-19 10:20 | disposition home or self-care (01) ==
LOC: FB.SDS 07:38
PROVIDERS: ATTEND Surgery
DX: D12.4 Benign neoplasm of descending colon (principal); D12.3 Benign neoplasm of transverse colon; K21.0 Gastro-esophageal reflux disease with esophagitis; K31.89 Other diseases of stomach and duodenum; F41.1 Generalized anxiety disorder; I10 Essential (primary) hypertension; F33.1 Major depressive disorder, recurrent, moderate; G47.33 Obstructive sleep apnea (adult) (pediatric); J44.9 Chronic obstructive pulmonary disease, unspecified; E78.2 Mixed hyperlipidemia; E66.01 Morbid (severe) obesity due to excess calories; Z98.890 Other specified postprocedural states; Z68.41 Body mass index [BMI] 40.0-44.9, adult; Z87.19 Personal history of other diseases of the digestive system; Z86.010 Personal history of colon polyps
CPT/HCPCS: 00813; 43239; 45380; A9270; J2001; J2250; J2704; J7120; 88305; 88313; 88342; J7620-GY

== ENCOUNTER 2021-09-09 06:36 | Day surgery (SDC) | payer MEDICARE, OTHER ==
[2021-09-09] MEDS ORDERED: Lidocaine 2% 5 ML SDV INJECT ONE (06:37)
[2021-09-09] MEDS ORDERED: Glycopyrrolate 0.2 MG/ML 5 ML MDV IV ONE (06:37)
[2021-09-09] MEDS ORDERED: Propofol 200 MG/20 ML SDV IV ONE (06:37)
[2021-09-09] MEDS ORDERED: Sodium Chloride 0.9% 10 ML Syringe FLUSH PRN (06:45)
[2021-09-09] MEDS: Lactated Ringers 1,000 ML IV SCH (07:10)
[2021-09-09 10:52] VITALS: BP 121/72; PULSE 76
== END 2021-09-09 09:25 | disposition home or self-care (01) ==
LOC: FB.SDS 06:36
PROVIDERS: ATTEND Surgery
DX: K29.50 Unspecified chronic gastritis without bleeding (principal); K21.00 Gastro-esophageal reflux disease with esophagitis, without bleeding; K31.89 Other diseases of stomach and duodenum; J44.9 Chronic obstructive pulmonary disease, unspecified; G47.33 Obstructive sleep apnea (adult) (pediatric); E78.2 Mixed hyperlipidemia; E66.01 Morbid (severe) obesity due to excess calories; G25.81 Restless legs syndrome; F32.A Depression, unspecified; Z68.42 Body mass index [BMI] 45.0-49.9, adult; Z79.899 Other long term (current) drug therapy
CPT/HCPCS: 00731-QZ; 88305; 88342; J2704; J3490; J7120

== ENCOUNTER 2023-02-04 19:30 | Emergency (ER) | payer MEDICARE, OTHER ==
[2023-02-04] MEDS: Albuterol/Ipratropium 3.0-0.5 MG/3 ML Neb Soln NEB PRN (19:55)
[2023-02-04] MEDS: methylPREDNISolone Sodium Succinate 125 MG/2 ML SDV IM ONE (19:55)
[2023-02-04 19:58] LABS: BASOPHILS ABSOLUTE AUTO 0.1 x10-3/uL (0.0-0.3); BASOPHILS PERCENT AUTO 0.9 % (0.3-3.8); EOSINOPHILS ABSOLUTE AUTO 0.4 x10-3/uL (0.0-0.6); EOSINOPHILS PERCENT AUTO 3.7 % (0.1-6.8); HEMATOCRIT 44.7 % (38.3-50.1); HEMOGLOBIN 15.5 g/dL (12.9-17.7); LYMPHOCYTES PERCENT AUTO 17.4 % (15.8-45.3); MEAN CORPUSCULAR HEMOGLOBIN 32.1 pg (27.0-33.3); MEAN CORPUSCULAR HGB CONC 34.7 g/dL (28.7-35.3); MEAN CORPUSCULAR VOLUME 92.5 fL (80.8-98.7); MEAN PLATELET VOLUME 7.7 fL (6.7-11.0); NEUTROPHILS ABSOLUTE AUTO 7.8 x10-3/uL (1.7-6.9); PLATELET COUNT,PLT 297 x10(3)uL (117-477); RED BLOOD CELL COUNT 4.83 x10(6)uL (3.90-5.90); RED CELL DISTRIBUTION WIDTH 15.6 % (12.4-15.0); WHITE BLOOD CELL COUNT,WBC 11.3 x10-3/uL (3.2-10.1)
[2023-02-04 19:59] LABS: BLOOD UREA NITROGEN,BUN 21 mg/dL (7-18); BUN/CREATININE RATIO 17.5 (9-20); CALCIUM 9.5 mg/dL (8.6-10.2); CARBON DIOXIDE,CO2 28 mmol/L (21-32); CHLORIDE,CL 98 mmol/L (100-110); CREATININE 1.2 mg/dL (0.70-1.30); EST CRCL DRUG DOSING (CG) 51.25 mL/min; ESTIMATED GFR 66 mL/min (>60); GLUCOSE RANDOM 123 mg/dL (80-116); POTASSIUM,K 3.3 mmol/L (3.5-5.3); SODIUM,NA 137 mmol/L (135-145)
[2023-02-04 20:05] LABS: ALANINE AMINOTRANSFERASE,ALT 29 U/L (12-36); ALBUMIN 3.9 g/dL (3.2-4.6); ALKALINE PHOSPHATASE 114 IU/L (56-112); ASPARTATE AMNIOTRANSFERASE,AST 19 IU/L (5-25); BILIRUBIN TOTAL 0.4 mg/dL (0.1-1.3)
[2023-02-04 20:11] LABS: TROPONIN I 5.6 pg/mL (4.0-60.3)
[2023-02-04] MEDS: Azithromycin 500 MG Tab PO ONE (20:37)
[2023-02-04] MEDS: Potassium Chloride 20 MEQ Tab.ER PO ONE (20:37)
[2023-02-04 20:46] VITALS: BP 133/68; PULSE 67
== END 2023-02-04 20:45 | disposition home or self-care (01) ==
LOC: FB.ED 19:30
DX: J44.1 Chronic obstructive pulmonary disease with (acute) exacerbation (principal); R09.1 Pleurisy; E87.6 Hypokalemia; K21.9 Gastro-esophageal reflux disease without esophagitis; E66.9 Obesity, unspecified; Z68.42 Body mass index [BMI] 45.0-49.9, adult; F17.210 Nicotine dependence, cigarettes, uncomplicated; Z91.048 Other nonmedicinal substance allergy status; Z79.899 Other long term (current) drug therapy; Z79.82 Long term (current) use of aspirin
CPT/HCPCS: 36415; 71045; 80053; 83880; 84484; 85025; 93005; 96372; 99285; A9270-GY; J2930; J7620

== ENCOUNTER 2023-03-14 13:49 | Emergency (ER) | payer MEDICARE ==
[2023-03-14] MEDS ORDERED: Naproxen 250 MG Tab PO ONE (13:50)
[2023-03-14] MEDS ORDERED: hydrOXYzine HCl 50 MG/ML SDV IM ONE (14:15)
[2023-03-14] MEDS ORDERED: Morphine 4 MG/ML VIAL IM ONE (14:15)
[2023-03-14 14:26] LABS: BASOPHILS ABSOLUTE AUTO 0.1 x10-3/uL (0.0-0.3); BASOPHILS PERCENT AUTO 0.8 % (0.3-3.8); EOSINOPHILS ABSOLUTE AUTO 0.4 x10-3/uL (0.0-0.6); EOSINOPHILS PERCENT AUTO 3.4 % (0.1-6.8); HEMATOCRIT 43.8 % (38.3-50.1); HEMOGLOBIN 15.5 g/dL (12.9-17.7); LYMPHOCYTES ABSOLUTE AUTO 1.7 x10-3/uL (0.5-4.5); LYMPHOCYTES PERCENT AUTO 16.3 % (15.8-45.3); MEAN CORPUSCULAR HEMOGLOBIN 32.9 pg (27.0-33.3); MEAN CORPUSCULAR HGB CONC 35.4 g/dL (28.7-35.3); MEAN CORPUSCULAR VOLUME 93.1 fL (80.8-98.7); MEAN PLATELET VOLUME 7.9 fL (6.7-11.0); MONOCYTES ABSOLUTE AUTO 1.2 x10-3/uL (0.0-1.2); MONOCYTES PERCENT AUTO 11.7 % (5.5-15.2); NEUTROPHILS ABSOLUTE AUTO 7.2 x10-3/uL (1.7-6.9); NEUTROPHILS PERCENT AUTO 67.8 % (40.3-71.8); PLATELET COUNT,PLT 335 x10(3)uL (117-477); RED CELL DISTRIBUTION WIDTH 15.3 % (12.4-15.0); WHITE BLOOD CELL COUNT,WBC 10.6 x10-3/uL (3.2-10.1)
[2023-03-14 14:29] LABS: BLOOD UREA NITROGEN,BUN 18 mg/dL (7-18); BUN/CREATININE RATIO 13.8 (9-20); CALCIUM 9.4 mg/dL (8.6-10.2); CARBON DIOXIDE,CO2 29 mmol/L (21-32); CHLORIDE,CL 98 mmol/L (100-110); CREATININE 1.3 mg/dL (0.70-1.30); EST CRCL DRUG DOSING (CG) 47.31 mL/min; ESTIMATED GFR 60 mL/min (>60); GLUCOSE RANDOM 138 mg/dL (80-116); POTASSIUM,K 3.1 mmol/L (3.5-5.3); SODIUM,NA 137 mmol/L (135-145)
[2023-03-14 15:13] VITALS: BP 152/76; PULSE 79
== END 2023-03-14 15:02 | disposition home or self-care (01) ==
LOC: FB.ED 13:49
DX: S20.212A Contusion of left front wall of thorax, initial encounter (principal); J44.9 Chronic obstructive pulmonary disease, unspecified; E66.9 Obesity, unspecified; Z68.45 Body mass index [BMI] 70 or greater, adult; Z90.49 Acquired absence of other specified parts of digestive tract; W10.9XXA Fall (on) (from) unspecified stairs and steps, initial encounter
CPT/HCPCS: 36415; 71101; 80048; 84484; 85025; 93005; 96372; 99284; A9270; J2270; J3410

== ENCOUNTER 2023-05-01 23:32 | Emergency (ER) | payer MEDICARE ==
[2023-05-01] MEDS ORDERED: Albuterol/Ipratropium 3.0-0.5 MG/3 ML Neb Soln NEB ONE (23:45)
[2023-05-01] MEDS ORDERED: methylPREDNISolone Sodium Succinate 125 MG/2 ML SDV IM ONE (23:45)
[2023-05-02] MEDS ORDERED: Amoxicillin/Clavulanate K 875-125 MG Tab PO ONE (00:29)
[2023-05-02 00:55] VITALS: BP 138/92; PULSE 94
== END 2023-05-02 00:54 | disposition home or self-care (01) ==
LOC: FB.ED 23:32
DX: J44.1 Chronic obstructive pulmonary disease with (acute) exacerbation (principal); Z91.09 Other allergy status, other than to drugs and biological substances
CPT/HCPCS: 96372; 99284; A9270; J2930; J7620

== ENCOUNTER 2023-07-31 06:47 | Emergency (ER) | payer MEDICARE ==
[2023-07-31] MEDS ORDERED: methylPREDNISolone Sodium Succinate 125 MG/2 ML SDV IM ONE (07:13)
[2023-07-31] MEDS ORDERED: Albuterol/Ipratropium 3.0-0.5 MG/3 ML Neb Soln NEB ONE (07:14)
[2023-07-31 08:53] VITALS: BP 150/80; PULSE 92
== END 2023-07-31 08:53 | disposition home or self-care (01) ==
LOC: FB.ED 06:47
DX: S09.90XA Unspecified injury of head, initial encounter (principal); J44.1 Chronic obstructive pulmonary disease with (acute) exacerbation; I10 Essential (primary) hypertension; F17.210 Nicotine dependence, cigarettes, uncomplicated; E66.9 Obesity, unspecified; Z68.42 Body mass index [BMI] 45.0-49.9, adult; Z91.048 Other nonmedicinal substance allergy status; W22.8XXA Striking against or struck by other objects, initial encounter
CPT/HCPCS: 70450; 71045; 96372; 99285; J2930; 99284; J7620

== ENCOUNTER 2023-08-13 11:16 | Emergency (ER) | payer MEDICARE ==
[2023-08-13 11:22] VITALS: BP 157/81
[2023-08-13] MEDS ORDERED: methylPREDNISolone Sodium Succinate 125 MG/2 ML SDV IM ONE (11:24)
[2023-08-13] MEDS ORDERED: Albuterol/Ipratropium 3.0-0.5 MG/3 ML Neb Soln NEB ONE (11:24)
[2023-08-13 13:01] VITALS: PULSE 99
== END 2023-08-13 13:01 | disposition home or self-care (01) ==
LOC: FB.ED 11:16
DX: J44.1 Chronic obstructive pulmonary disease with (acute) exacerbation (principal); F17.210 Nicotine dependence, cigarettes, uncomplicated; I10 Essential (primary) hypertension; Z91.048 Other nonmedicinal substance allergy status; E66.9 Obesity, unspecified; Z68.42 Body mass index [BMI] 45.0-49.9, adult
CPT/HCPCS: 71045; 94640; 96372; 99283; 99284; J2930; J7620

== ENCOUNTER 2023-11-13 02:42 | Emergency (ER) | payer MEDICARE, MEDICAID, OTHER ==
[2023-11-13] MEDS ORDERED: Azithromycin 250 MG Tab PO ONE (02:43)
[2023-11-13] MEDS ORDERED: predniSONE 20 MG Tab PO ONE (02:43)
[2023-11-13] MEDS: Albuterol/Ipratropium 3.0-0.5 MG/3 ML Neb Soln NEB ONE (03:11)
[2023-11-13 03:18] VITALS: BP 129/57; PULSE 94
== END 2023-11-13 03:30 | disposition home or self-care (01) ==
LOC: FB.ED 02:42
DX: J44.1 Chronic obstructive pulmonary disease with (acute) exacerbation (principal); I10 Essential (primary) hypertension; E78.00 Pure hypercholesterolemia, unspecified; E66.9 Obesity, unspecified; Z88.8 Allergy status to other drugs, medicaments and biological substances; Z79.82 Long term (current) use of aspirin; Z79.899 Other long term (current) drug therapy; Z90.49 Acquired absence of other specified parts of digestive tract; Z68.41 Body mass index [BMI] 40.0-44.9, adult
CPT/HCPCS: 93005; 93010; 94640; 99284; A9270-GY; J7512; J7620

== ENCOUNTER 2024-05-18 02:31 | Emergency (ER) | payer MEDICARE, OTHER ==
[2024-05-18 02:49] VITALS: BP 148/59; PULSE 78
[2024-05-18] MEDS: diphenhydrAMINE 50 MG/ML SDV IM ONE (03:00)
[2024-05-18] MEDS: predniSONE 20 MG Tab PO ONE (03:00)
== END 2024-05-18 03:06 | disposition home or self-care (01) ==
LOC: FB.ED 02:31
DX: J44.1 Chronic obstructive pulmonary disease with (acute) exacerbation (principal); E78.00 Pure hypercholesterolemia, unspecified; I10 Essential (primary) hypertension; K21.9 Gastro-esophageal reflux disease without esophagitis; E66.9 Obesity, unspecified; Z68.41 Body mass index [BMI] 40.0-44.9, adult; Z90.49 Acquired absence of other specified parts of digestive tract; Z79.82 Long term (current) use of aspirin; Z79.899 Other long term (current) drug therapy; Z91.048 Other nonmedicinal substance allergy status
CPT/HCPCS: 96372; 99284; J1200; J7512

== ENCOUNTER 2024-06-02 06:56 | Emergency (ER) | payer MEDICARE, OTHER ==
[2024-06-02 07:12] VITALS: BP 135/83; PULSE 78
[2024-06-02] MEDS: Ketorolac 30 MG/ML SDV IM ONE (07:23)
== END 2024-06-02 07:58 | disposition home or self-care (01) ==
LOC: FB.ED 06:56
DX: S20.211A Contusion of right front wall of thorax, initial encounter (principal); I10 Essential (primary) hypertension; E78.00 Pure hypercholesterolemia, unspecified; J44.9 Chronic obstructive pulmonary disease, unspecified; K21.9 Gastro-esophageal reflux disease without esophagitis; M19.90 Unspecified osteoarthritis, unspecified site; E66.9 Obesity, unspecified; F17.210 Nicotine dependence, cigarettes, uncomplicated; Z90.49 Acquired absence of other specified parts of digestive tract; Z91.048 Other nonmedicinal substance allergy status; Z88.0 Allergy status to penicillin; Z79.52 Long term (current) use of systemic steroids; Z79.2 Long term (current) use of antibiotics; Z79.82 Long term (current) use of aspirin; Z79.899 Other long term (current) drug therapy; X58.XXXA Exposure to other specified factors, initial encounter; Z68.41 Body mass index [BMI] 40.0-44.9, adult
CPT/HCPCS: 96372; 99283; J1885

== ENCOUNTER 2024-11-30 13:04 | Inpatient (IN) | payer MEDICARE ==
[2024-11-30 13:36] LABS: BASOPHILS ABSOLUTE AUTO 0.1 x10-3/uL (0.0-0.3); BASOPHILS PERCENT AUTO 0.9 % (0.3-3.8); EOSINOPHILS ABSOLUTE AUTO 0.1 x10-3/uL (0.0-0.6); EOSINOPHILS PERCENT AUTO 0.6 % (0.1-6.8); HEMATOCRIT 34.8 % (38.3-50.1); LYMPHOCYTES ABSOLUTE AUTO 1.3 x10-3/uL (0.5-4.5); MEAN CORPUSCULAR HGB CONC 34.7 g/dL (28.7-35.3); MEAN CORPUSCULAR VOLUME 89.6 fL (80.8-98.7); MEAN PLATELET VOLUME 7.7 fL (6.7-11.0); MONOCYTES ABSOLUTE AUTO 1.5 x10-3/uL (0.0-1.2); MONOCYTES PERCENT AUTO 11.9 % (5.5-15.2); NEUTROPHILS ABSOLUTE AUTO 9.6 x10-3/uL (1.7-6.9); NEUTROPHILS PERCENT AUTO 76.6 % (40.3-71.8); PLATELET COUNT,PLT 297 x10(3)uL (117-477); RED BLOOD CELL COUNT 3.88 x10(6)uL (3.90-5.90); RED CELL DISTRIBUTION WIDTH 16.2 % (12.4-15.0); WHITE BLOOD CELL COUNT,WBC 12.6 x10-3/uL (3.2-10.1)
[2024-11-30 13:38] LABS: BLOOD UREA NITROGEN,BUN 23 mg/dL (7-18); BUN/CREATININE RATIO 19.2 (9-20); CALCIUM 8.6 mg/dL (8.6-10.2); CARBON DIOXIDE,CO2 29 mmol/L (21-32); CHLORIDE,CL 102 mmol/L (100-110); CREATININE 1.2 mg/dL (0.70-1.30); ESTIMATED GFR 65 mL/min (>60); GLUCOSE RANDOM 164 mg/dL (80-116); POTASSIUM,K 3.5 mmol/L (3.5-5.3); SODIUM,NA 139 mmol/L (135-145)
[2024-11-30 13:40] LABS: INR 0.99 (1.00-1.24); PROTHROMBIN TIME 10.3 sec (9.0-11.1)
[2024-11-30 13:44] LABS: A/G RATIO 0.8; ALANINE AMINOTRANSFERASE,ALT 34 U/L (12-36); ALBUMIN 3.1 g/dL (3.2-4.6); ALKALINE PHOSPHATASE 91 IU/L (56-112); ASPARTATE AMNIOTRANSFERASE,AST 47 IU/L (5-25); BILIRUBIN TOTAL 0.6 mg/dL (0.1-1.3); PROTEIN TOTAL,TP 7.2 g/dL (6.0-8.0)
[2024-11-30] MEDS: Sodium Chloride 0.9% 1,000 ML IV ONE (14:11)
[2024-11-30 15:26] LABS: BASE EXCESS VENOUS,POC -1 mmol/L (-2 - 3+); PCO2 VENOUS,POC 41 mmHg (41-51); PH VENOUS,POC 7.38 pH Units (7.32-7.43)
[2024-11-30] MEDS ORDERED: Albuterol 6.7 GM Inhaler INH PRN (15:30)
[2024-11-30] MEDS ORDERED: TADALAFIL 10 MG PO PRN (15:30)
[2024-11-30] MEDS ORDERED: Acetaminophen 500 MG Tab PO PRN (15:30)
[2024-11-30] MEDS ORDERED: hydrOXYzine Pamoate 25 MG Cap PO PRN (15:30)
[2024-11-30] MEDS ORDERED: Calcium Carbonate 500 MG Tab.Chew PO PRN (15:30)
[2024-11-30] MEDS ORDERED: Acetaminophen 650 MG Supp RECTAL PRN (15:37)
[2024-11-30] MEDS: Iopamidol 755 Mg/ML 100 ML Bottle IV ONE (15:37)
[2024-11-30] MEDS ORDERED: Cyclobenzaprine 10 MG Tab PO PRN (15:47)
[2024-11-30] MEDS ORDERED: SUMAtriptan 50 MG Tab PO PRN (15:52)
[2024-11-30] MEDS ORDERED: 50% Dextrose in Water 50 ML Syringe IVPUSH PRN (16:08)
[2024-11-30] MEDS ORDERED: Glucagon,Human Recombinant 1 MG Vial IM PRN (16:08)
[2024-11-30] MEDS ORDERED: Naloxone 0.4 MG/ML SDV IVPUSH PRN (16:09)
[2024-11-30 17:04] LABS: BILIRUBIN,URINE NEGATIVE (NEGATIVE); GLUCOSE,URINE >1000 mg/dL (NORMAL); KETONES,URINE NEGATIVE (NEGATIVE); LEUKOCYTE ESTERASE,URINE NEGATIVE (NEGATIVE); NITRITE,URINE NEGATIVE (NEGATIVE); OCCULT BLOOD,URINE NEGATIVE (NEGATIVE); PROTEIN,URINE NEGATIVE (NEGATIVE); UROBILINOGEN,URINE 4 mg/dL (NEGATIVE)
[2024-11-30 17:06] LABS: APPEARANCE,URINE SLIGHTLY CLOUDY (CLEAR); COLOR,URINE YELLOW (YELLOW)
[2024-11-30] MEDS: Albuterol/Ipratropium 3.0-0.5 MG/3 ML Neb Soln NEB SCH ×2 (17:24→21:15)
[2024-11-30] MEDS: Heparin Sodium 5,000 Units/ML Vial SUBCUT SCH (17:32)
[2024-11-30] MEDS: Pantoprazole 40 MG Tab.CR PO SCH (17:41)
[2024-11-30] MEDS: methylPREDNISolone Sodium Succinate 40 MG/1 ML SDV IVPUSH SCH (17:45)
[2024-11-30] MEDS: Insulin Lispro 100 Unit/ML 3 ML KwikPen SUBCUT SCH (17:48)
[2024-11-30] MEDS ORDERED: Albuterol 0.083% 2.5 MG/3 ML Neb Soln INH SCH (21:00)
[2024-11-30] MEDS: atorvaSTATin 40 MG Tab PO SCH (21:13)
[2024-11-30] MEDS: Montelukast 10 MG Tab PO SCH (21:14)
[2024-11-30] MEDS: Donepezil 10 MG Tab PO SCH (21:14)
[2024-11-30] MEDS: traZODone 50 MG Tab PO SCH (21:14)
[2024-11-30] MEDS: Nicotine 21 MG/24 Hr Patch TRDERM SCH (22:22)
[2024-12-01 07:03] LABS: BASOPHILS PERCENT AUTO 0.3 % (0.3-3.8); EOSINOPHILS PERCENT AUTO 0.2 % (0.1-6.8); HEMATOCRIT 32.4 % (38.3-50.1); HEMOGLOBIN 11.2 g/dL (12.9-17.7); LYMPHOCYTES ABSOLUTE AUTO 0.7 x10-3/uL (0.5-4.5); LYMPHOCYTES PERCENT AUTO 6.5 % (15.8-45.3); MEAN CORPUSCULAR HGB CONC 34.6 g/dL (28.7-35.3); MEAN CORPUSCULAR VOLUME 89.6 fL (80.8-98.7); MEAN PLATELET VOLUME 7.8 fL (6.7-11.0); MONOCYTES ABSOLUTE AUTO 0.8 x10-3/uL (0.0-1.2); MONOCYTES PERCENT AUTO 7.3 % (5.5-15.2); NEUTROPHILS ABSOLUTE AUTO 9.4 x10-3/uL (1.7-6.9); NEUTROPHILS PERCENT AUTO 85.7 % (40.3-71.8); PLATELET COUNT,PLT 294 x10(3)uL (117-477); RED BLOOD CELL COUNT 3.62 x10(6)uL (3.90-5.90); WHITE BLOOD CELL COUNT,WBC 10.9 x10-3/uL (3.2-10.1)
[2024-12-01 07:14] LABS: A/G RATIO 0.7; ALANINE AMINOTRANSFERASE,ALT 33 U/L (12-36); ALBUMIN 2.8 g/dL (3.2-4.6); ALKALINE PHOSPHATASE 87 IU/L (56-112); ASPARTATE AMNIOTRANSFERASE,AST 42 IU/L (5-25); BILIRUBIN TOTAL 0.5 mg/dL (0.1-1.3); BLOOD UREA NITROGEN,BUN 18 mg/dL (7-18); CALCIUM 8.7 mg/dL (8.6-10.2); CARBON DIOXIDE,CO2 28 mmol/L (21-32); CHLORIDE,CL 105 mmol/L (100-110); CREATININE 0.9 mg/dL (0.70-1.30); EST CRCL DRUG DOSING (CG) 66.44 mL/min; ESTIMATED GFR 92 mL/min (>60); GLUCOSE RANDOM 159 mg/dL (80-116); POTASSIUM,K 4.3 mmol/L (3.5-5.3); PROTEIN TOTAL,TP 6.8 g/dL (6.0-8.0); SODIUM,NA 141 mmol/L (135-145)
[2024-12-01] MEDS: Fluticasone NASAL Spray 16 GM Bottle NASBOTH SCH (08:01)
[2024-12-01] MEDS: Escitalopram 20 MG Tab PO SCH (08:01)
[2024-12-01] MEDS: Aspirin 81 MG Tab.EC PO SCH (08:02)
[2024-12-01] MEDS: Furosemide 40 MG Tab PO SCH ×2 (08:02→16:02)
[2024-12-01] MEDS: Oxybutynin 5 MG Tab.ER PO SCH (08:02)
[2024-12-01] MEDS: Famotidine 20 MG Tab PO SCH (08:03)
[2024-12-01] MEDS: Multivitamins with Iron/Calcium/Folic Acid/Minerals Tab PO SCH (08:03)
[2024-12-01] MEDS: buPROPion 150 MG Tab.ER PO SCH (08:04)
[2024-12-01] MEDS: ARIPiprazole 5 MG Tab PO SCH (08:05)
[2024-12-01] MEDS: Revefenacin 175 MCG/3 ML Neb Soln INH SCH (08:06)
[2024-12-01] MEDS ORDERED: Non-Formulary Medication 1 Each (Bupropion Hcl [Bupropion Xl] 300 MG Tab.Er.24h) PO SCH (09:00)
[2024-12-01] MEDS: Gabapentin 300 MG Cap PO SCH (09:15)
[2024-12-01] MEDS: Losartan 50 MG Tab PO SCH (09:47)
[2024-12-01] MEDS ORDERED: oxyCODONE 5 MG Tab PO PRN (10:02)
[2024-12-01] MEDS ORDERED: Polyethylene Glycol 3350 Powder 17 GM Packet PO PRN (10:02)
[2024-12-01] MEDS: Sodium Chloride 0.9% 10 ML Syringe FLUSH PRN (10:55)
[2024-12-01] MEDS: cefTRIAXone 2 GM Vial IV SCH (10:56)
[2024-12-01] MEDS: Doxycycline 100 MG in Sodium Chloride 0.9% 100 ML IV SCH (10:57)
[2024-12-01] MEDS: Furosemide 40 MG/4 ML VIAL IVPUSH ONE (11:09)
[2024-12-01] MEDS: Furosemide 20 MG Tab PO SCH (14:09)
[2024-12-01] MEDS: Acetaminophen 325 MG Tab PO PRN (15:52)
[2024-12-01] MEDS: cefTRIAXone 2 GM in Sodium Chloride 0.9% 50 ML IV SCH (16:02)
[2024-12-01] MEDS ORDERED: GEMFIBROZIL 600 MG PO SCH (18:00)
[2024-12-01] MEDS: Sennosides/Docusate Sodium 50-8.6 MG Tab PO SCH (20:48)
[2024-12-02 06:33] LABS: BASOPHILS PERCENT AUTO 0.1 % (0.3-3.8); EOSINOPHILS PERCENT AUTO 0.3 % (0.1-6.8); HEMATOCRIT 32.6 % (38.3-50.1); LYMPHOCYTES ABSOLUTE AUTO 1.3 x10-3/uL (0.5-4.5); LYMPHOCYTES PERCENT AUTO 9.9 % (15.8-45.3); MEAN CORPUSCULAR HEMOGLOBIN 30.6 pg (27.0-33.3); MEAN CORPUSCULAR HGB CONC 33.8 g/dL (28.7-35.3); MEAN CORPUSCULAR VOLUME 90.6 fL (80.8-98.7); MEAN PLATELET VOLUME 7.8 fL (6.7-11.0); MONOCYTES ABSOLUTE AUTO 1.1 x10-3/uL (0.0-1.2); MONOCYTES PERCENT AUTO 8.8 % (5.5-15.2); NEUTROPHILS ABSOLUTE AUTO 10.2 x10-3/uL (1.7-6.9); NEUTROPHILS PERCENT AUTO 80.9 % (40.3-71.8); PLATELET COUNT,PLT 317 x10(3)uL (117-477); RED BLOOD CELL COUNT 3.59 x10(6)uL (3.90-5.90); RED CELL DISTRIBUTION WIDTH 15.8 % (12.4-15.0); WHITE BLOOD CELL COUNT,WBC 12.6 x10-3/uL (3.2-10.1)
[2024-12-02 06:38] LABS: BLOOD UREA NITROGEN,BUN 22 mg/dL (7-18); CALCIUM 8.8 mg/dL (8.6-10.2); CARBON DIOXIDE,CO2 30 mmol/L (21-32); CHLORIDE,CL 103 mmol/L (100-110); EST CRCL DRUG DOSING (CG) 59.79 mL/min; ESTIMATED GFR 81 mL/min (>60); GLUCOSE RANDOM 146 mg/dL (80-116); SODIUM,NA 139 mmol/L (135-145)
[2024-12-02] MEDS ORDERED: Benzonatate 100 MG Cap PO PRN (10:40)
[2024-12-02] MEDS: methylPREDNISolone Sodium Succinate 40 MG/1 ML SDV IVPUSH SCH (20:57)
[2024-12-03 06:18] LABS: BASOPHILS ABSOLUTE AUTO 0.1 x10-3/uL (0.0-0.3); BASOPHILS PERCENT AUTO 0.8 % (0.3-3.8); EOSINOPHILS PERCENT AUTO 0.3 % (0.1-6.8); HEMATOCRIT 33.6 % (38.3-50.1); HEMOGLOBIN 11.5 g/dL (12.9-17.7); LYMPHOCYTES ABSOLUTE AUTO 1.7 x10-3/uL (0.5-4.5); LYMPHOCYTES PERCENT AUTO 14.1 % (15.8-45.3); MEAN CORPUSCULAR HEMOGLOBIN 30.7 pg (27.0-33.3); MEAN CORPUSCULAR HGB CONC 34.3 g/dL (28.7-35.3); MEAN CORPUSCULAR VOLUME 89.3 fL (80.8-98.7); MONOCYTES ABSOLUTE AUTO 0.9 x10-3/uL (0.0-1.2); MONOCYTES PERCENT AUTO 7.5 % (5.5-15.2); NEUTROPHILS ABSOLUTE AUTO 9.2 x10-3/uL (1.7-6.9); NEUTROPHILS PERCENT AUTO 77.3 % (40.3-71.8); PLATELET COUNT,PLT 322 x10(3)uL (117-477); RED BLOOD CELL COUNT 3.76 x10(6)uL (3.90-5.90); RED CELL DISTRIBUTION WIDTH 15.9 % (12.4-15.0); WHITE BLOOD CELL COUNT,WBC 11.9 x10-3/uL (3.2-10.1)
[2024-12-03 06:23] LABS: BLOOD UREA NITROGEN,BUN 21 mg/dL (7-18); BUN/CREATININE RATIO 23.3 (9-20); CALCIUM 8.9 mg/dL (8.6-10.2); CARBON DIOXIDE,CO2 26 mmol/L (21-32); CHLORIDE,CL 99 mmol/L (100-110); CREATININE 0.9 mg/dL (0.70-1.30); EST CRCL DRUG DOSING (CG) 66.44 mL/min; ESTIMATED GFR 92 mL/min (>60); GLUCOSE RANDOM 205 mg/dL (80-116); POTASSIUM,K 4.1 mmol/L (3.5-5.3); SODIUM,NA 133 mmol/L (135-145)
[2024-12-03] MEDS: predniSONE 20 MG Tab PO SCH (21:31)
[2024-12-04 06:29] LABS: BLOOD UREA NITROGEN,BUN 20 mg/dL (7-18); BUN/CREATININE RATIO 16.7 (9-20); CALCIUM 9.2 mg/dL (8.6-10.2); CARBON DIOXIDE,CO2 30 mmol/L (21-32); CHLORIDE,CL 99 mmol/L (100-110); CREATININE 1.2 mg/dL (0.70-1.30); EST CRCL DRUG DOSING (CG) 49.83 mL/min; ESTIMATED GFR 65 mL/min (>60); GLUCOSE RANDOM 264 mg/dL (80-116); SODIUM,NA 134 mmol/L (135-145)
[2024-12-04] MEDS: NICOTINE PATCH TRDERM SCH (09:36)
[2024-12-04 09:50] VITALS: BP 138/60
[2024-12-04 10:29] VITALS: PULSE 76
[2024-12-04] MEDS: predniSONE 20 MG Tab PO SCH (11:29)
[2024-12-05 15:38] LABS: STREPTOCOCCUS PNEUMONIAE AG,UR Negative (Negative)
[2024-12-05 22:28] LABS: LEGIONELLA PNEUMOPHILA AG,URN Negative (Negative)
== END 2024-12-04 12:10 | disposition home health service (06) | DRG 193 ==
LOC: FB.ED 13:04 → FB.MS 15:27
PROVIDERS: ADMIT Family Medicine; ATTEND Internal Medicine
DX: J18.9 Pneumonia, unspecified organism (principal); J96.01 Acute respiratory failure with hypoxia; J44.1 Chronic obstructive pulmonary disease with (acute) exacerbation; F02.A3 Dementia in other diseases classified elsewhere, mild, with mood disturbance; Z68.42 Body mass index [BMI] 45.0-49.9, adult; M19.90 Unspecified osteoarthritis, unspecified site; F17.200 Nicotine dependence, unspecified, uncomplicated; Z91.048 Other nonmedicinal substance allergy status; R06.9 Unspecified abnormalities of breathing; R79.1 Abnormal coagulation profile; Z79.51 Long term (current) use of inhaled steroids; J44.0 Chronic obstructive pulmonary disease with (acute) lower respiratory infection; F02.A4 Dementia in other diseases classified elsewhere, mild, with anxiety; G47.33 Obstructive sleep apnea (adult) (pediatric); E11.9 Type 2 diabetes mellitus without complications; W19.XXXA Unspecified fall, initial encounter; M54.16 Radiculopathy, lumbar region; G30.9 Alzheimer's disease, unspecified; R53.1 Weakness; H54.7 Unspecified visual loss; N40.0 Benign prostatic hyperplasia without lower urinary tract symptoms; G43.909 Migraine, unspecified, not intractable, without status migrainosus; F17.210 Nicotine dependence, cigarettes, uncomplicated; F10.21 Alcohol dependence, in remission; E66.9 Obesity, unspecified; G89.29 Other chronic pain; M54.9 Dorsalgia, unspecified; E78.00 Pure hypercholesterolemia, unspecified; K21.9 Gastro-esophageal reflux disease without esophagitis; I10 Essential (primary) hypertension; Z96.651 Presence of right artificial knee joint; Z79.899 Other long term (current) drug therapy; Z86.73 Personal history of transient ischemic attack (TIA), and cerebral infarction without residual deficits; Z79.52 Long term (current) use of systemic steroids; Z79.82 Long term (current) use of aspirin; Z79.84 Long term (current) use of oral hypoglycemic drugs; Z86.0100 Personal history of colon polyps, unspecified; Z85.828 Personal history of other malignant neoplasm of skin; Z90.49 Acquired absence of other specified parts of digestive tract; Z98.890 Other specified postprocedural states; Z91.09 Other allergy status, other than to drugs and biological substances
CPT/HCPCS: 36415; 70450; 71045; 71275; 80048; 80053; 81003; 82947; 83605; 83735; 83880; 84484; 85025; 85610; 87040; 87070; 87205; 87449; 87486; 87581; 87633; 87798; 87899; 93005; 94150; 94640; 96360; 97161-GP; 97165-GO; 97535-GO; 99222; 99232; 99238; 99285-25; A9270-GY; J0696; J1644; J1815; J1938; J2919; J3490; J7030; J7512; J7677; Q9967; U0002

== ENCOUNTER 2024-12-15 16:26 | Inpatient (IN) | payer MEDICARE ==
[2024-12-15 17:37] LABS: BASOPHILS ABSOLUTE AUTO 0.1 x10-3/uL (0.0-0.3); BASOPHILS PERCENT AUTO 1.3 % (0.3-3.8); EOSINOPHILS ABSOLUTE AUTO 0.3 x10-3/uL (0.0-0.6); EOSINOPHILS PERCENT AUTO 3.9 % (0.1-6.8); HEMATOCRIT 37.6 % (38.3-50.1); HEMOGLOBIN 12.8 g/dL (12.9-17.7); LYMPHOCYTES ABSOLUTE AUTO 1.6 x10-3/uL (0.5-4.5); MEAN CORPUSCULAR HEMOGLOBIN 30.9 pg (27.0-33.3); MEAN CORPUSCULAR VOLUME 90.7 fL (80.8-98.7); MEAN PLATELET VOLUME 7.5 fL (6.7-11.0); MONOCYTES ABSOLUTE AUTO 0.9 x10-3/uL (0.0-1.2); MONOCYTES PERCENT AUTO 9.5 % (5.5-15.2); NEUTROPHILS PERCENT AUTO 67.3 % (40.3-71.8); PLATELET COUNT,PLT 349 x10(3)uL (117-477); RED CELL DISTRIBUTION WIDTH 16.8 % (12.4-15.0); WHITE BLOOD CELL COUNT,WBC 8.9 x10-3/uL (3.2-10.1)
[2024-12-15 17:40] LABS: BLOOD UREA NITROGEN,BUN 10 mg/dL (7-18); BUN/CREATININE RATIO 9.1 (9-20); CALCIUM 9.2 mg/dL (8.6-10.2); CARBON DIOXIDE,CO2 29 mmol/L (21-32); CHLORIDE,CL 105 mmol/L (100-110); CREATININE 1.1 mg/dL (0.70-1.30); EST CRCL DRUG DOSING (CG) 54.36 mL/min; ESTIMATED GFR 72 mL/min (>60); GLUCOSE RANDOM 140 mg/dL (80-116); POTASSIUM,K 4.2 mmol/L (3.5-5.3); SODIUM,NA 140 mmol/L (135-145)
[2024-12-15 17:46] LABS: A/G RATIO 0.8; ALANINE AMINOTRANSFERASE,ALT 24 U/L (12-36); ALBUMIN 3.1 g/dL (3.2-4.6); ALKALINE PHOSPHATASE 113 IU/L (56-112); ASPARTATE AMNIOTRANSFERASE,AST 13 IU/L (5-25); BILIRUBIN TOTAL 0.4 mg/dL (0.1-1.3); PROTEIN TOTAL,TP 6.9 g/dL (6.0-8.0)
[2024-12-15 17:49] LABS: LACTIC ACID 1.4 mmol/L (0.4-2.0)
[2024-12-15 17:50] LABS: RED BLOOD CELL COUNT 4.15 x10(6)uL (3.90-5.90)
[2024-12-15] MEDS: cefTRIAXone 2 GM Vial IVPUSH ONE (17:53)
[2024-12-15] MEDS ORDERED: Ondansetron 4 MG/2 ML SDV IV PRN (18:21)
[2024-12-15] MEDS ORDERED: Sennosides/Docusate Sodium 50-8.6 MG Tab PO PRN (18:21)
[2024-12-15] MEDS: Enoxaparin 40 MG/0.4 ML Syringe SUBCUT SCH (22:27)
[2024-12-16] MEDS: Gabapentin 300 MG Cap PO SCH (00:04)
[2024-12-16] MEDS: Acetaminophen 325 MG Tab PO PRN (00:04)
[2024-12-16] MEDS: Donepezil 10 MG Tab PO SCH (00:05)
[2024-12-16] MEDS: traZODone 50 MG Tab PO SCH (00:05)
[2024-12-16] MEDS: Ketorolac 30 MG/ML SDV IVPUSH PRN (03:08)
[2024-12-16] MEDS: Sodium Chloride 0.9% 10 ML Syringe FLUSH PRN (03:09)
[2024-12-16 06:45] LABS: BASOPHILS PERCENT AUTO 0.4 % (0.3-3.8); EOSINOPHILS ABSOLUTE AUTO 0.3 x10-3/uL (0.0-0.6); EOSINOPHILS PERCENT AUTO 3.8 % (0.1-6.8); HEMATOCRIT 37.2 % (38.3-50.1); HEMOGLOBIN 12.7 g/dL (12.9-17.7); LYMPHOCYTES ABSOLUTE AUTO 1.9 x10-3/uL (0.5-4.5); LYMPHOCYTES PERCENT AUTO 23.3 % (15.8-45.3); MEAN CORPUSCULAR HEMOGLOBIN 30.9 pg (27.0-33.3); MEAN CORPUSCULAR VOLUME 90.7 fL (80.8-98.7); MEAN PLATELET VOLUME 7.4 fL (6.7-11.0); MONOCYTES ABSOLUTE AUTO 0.8 x10-3/uL (0.0-1.2); MONOCYTES PERCENT AUTO 9.9 % (5.5-15.2); NEUTROPHILS ABSOLUTE AUTO 5.2 x10-3/uL (1.7-6.9); NEUTROPHILS PERCENT AUTO 62.6 % (40.3-71.8); PLATELET COUNT,PLT 337 x10(3)uL (117-477); RED CELL DISTRIBUTION WIDTH 16.8 % (12.4-15.0); WHITE BLOOD CELL COUNT,WBC 8.3 x10-3/uL (3.2-10.1)
[2024-12-16 06:54] LABS: A/G RATIO 0.8; ALANINE AMINOTRANSFERASE,ALT 28 U/L (12-36); ALBUMIN 3.2 g/dL (3.2-4.6); ALKALINE PHOSPHATASE 118 IU/L (56-112); ASPARTATE AMNIOTRANSFERASE,AST 19 IU/L (5-25); BILIRUBIN TOTAL 0.5 mg/dL (0.1-1.3); BLOOD UREA NITROGEN,BUN 11 mg/dL (7-18); CALCIUM 9.5 mg/dL (8.6-10.2); CARBON DIOXIDE,CO2 30 mmol/L (21-32); CHLORIDE,CL 101 mmol/L (100-110); CREATININE 1.1 mg/dL (0.70-1.30); EST CRCL DRUG DOSING (CG) 54.36 mL/min; ESTIMATED GFR 72 mL/min (>60); GLUCOSE RANDOM 129 mg/dL (80-116); POTASSIUM,K 4.4 mmol/L (3.5-5.3); SODIUM,NA 138 mmol/L (135-145)
[2024-12-16] MEDS: VANCOmycin 2 GM/400 ML 2 GM in Premix Bag 1 BAG IV SCH (12:19)
[2024-12-16] MEDS ORDERED: SUMAtriptan 50 MG Tab PO PRN (15:45)
[2024-12-16] MEDS ORDERED: Albuterol 6.7 GM Inhaler INH PRN (15:45)
[2024-12-16] MEDS ORDERED: hydrOXYzine Pamoate 25 MG Cap PO PRN (15:45)
[2024-12-16] MEDS ORDERED: Menthol 10%/Methyl Salicylate 30% 85 GM Tube TOP PRN (15:45)
[2024-12-16] MEDS ORDERED: 50% Dextrose in Water 50 ML Syringe IVPUSH PRN (16:00)
[2024-12-16] MEDS ORDERED: Glucagon,Human Recombinant 1 MG Vial IM PRN (16:00)
[2024-12-16] MEDS: Cyclobenzaprine 10 MG Tab PO PRN (17:34)
[2024-12-16] MEDS: Torsemide 20 MG Tab PO SCH (17:35)
[2024-12-16] MEDS: Polyethylene Glycol 3350 Powder 17 GM Packet PO PRN (17:35)
[2024-12-16] MEDS: Calcium Carbonate 500 MG Tab.Chew PO PRN (17:35)
[2024-12-16] MEDS: Albuterol/Ipratropium 3.0-0.5 MG/3 ML Neb Soln INH SCH (17:36)
[2024-12-16] MEDS: Insulin Lispro 100 Unit/ML 3 ML KwikPen SUBCUT SCH (18:10)
[2024-12-16] MEDS ORDERED: cefTRIAXone 2 GM Vial IVPUSH SCH (18:30)
[2024-12-16] MEDS: oxyCODONE 5 MG Tab PO PRN (19:07)
[2024-12-16] MEDS: Aspirin 325 MG Tab.EC PO SCH (21:21)
[2024-12-16] MEDS: Celecoxib 100 MG Cap PO SCH (21:21)
[2024-12-16] MEDS: Montelukast 10 MG Tab PO SCH (21:21)
[2024-12-16] MEDS: Sennosides/Docusate Sodium 50-8.6 MG Tab PO SCH (21:21)
[2024-12-16] MEDS: Pantoprazole 40 MG Tab.CR PO SCH (21:22)
[2024-12-17 06:55] LABS: BASOPHILS ABSOLUTE AUTO 0.1 x10-3/uL (0.0-0.3); BASOPHILS PERCENT AUTO 0.7 % (0.3-3.8); BLOOD UREA NITROGEN,BUN 16 mg/dL (7-18); BUN/CREATININE RATIO 14.5 (9-20); CALCIUM 9.7 mg/dL (8.6-10.2); CARBON DIOXIDE,CO2 27 mmol/L (21-32); CHLORIDE,CL 101 mmol/L (100-110); CREATININE 1.1 mg/dL (0.70-1.30); EOSINOPHILS ABSOLUTE AUTO 0.2 x10-3/uL (0.0-0.6); EOSINOPHILS PERCENT AUTO 3.6 % (0.1-6.8); EST CRCL DRUG DOSING (CG) 54.36 mL/min; ESTIMATED GFR 72 mL/min (>60); GLUCOSE RANDOM 138 mg/dL (80-116); HEMATOCRIT 34.9 % (38.3-50.1); LYMPHOCYTES ABSOLUTE AUTO 1.2 x10-3/uL (0.5-4.5); LYMPHOCYTES PERCENT AUTO 17.1 % (15.8-45.3); MEAN CORPUSCULAR HEMOGLOBIN 30.8 pg (27.0-33.3); MEAN CORPUSCULAR HGB CONC 34.3 g/dL (28.7-35.3); MEAN CORPUSCULAR VOLUME 89.9 fL (80.8-98.7); MEAN PLATELET VOLUME 7.4 fL (6.7-11.0); MONOCYTES ABSOLUTE AUTO 0.7 x10-3/uL (0.0-1.2); MONOCYTES PERCENT AUTO 10.5 % (5.5-15.2); NEUTROPHILS ABSOLUTE AUTO 4.7 x10-3/uL (1.7-6.9); NEUTROPHILS PERCENT AUTO 68.1 % (40.3-71.8); PLATELET COUNT,PLT 306 x10(3)uL (117-477); POTASSIUM,K 4.6 mmol/L (3.5-5.3); RED BLOOD CELL COUNT 3.88 x10(6)uL (3.90-5.90); SODIUM,NA 137 mmol/L (135-145); WHITE BLOOD CELL COUNT,WBC 6.8 x10-3/uL (3.2-10.1)
[2024-12-17] MEDS ORDERED: Non-Formulary Medication 1 Each (Bupropion Hcl [Bupropion Xl] 300 MG Tab.Er.24h) PO SCH (09:00)
[2024-12-17] MEDS: ARIPiprazole 5 MG Tab PO SCH (09:09)
[2024-12-17] MEDS: Escitalopram 20 MG Tab PO SCH (09:09)
[2024-12-17] MEDS: Famotidine 20 MG Tab PO SCH (09:09)
[2024-12-17] MEDS: Potassium Chloride 10 MEQ Tab.ER PO SCH (09:10)
[2024-12-17] MEDS: Oxybutynin 5 MG Tab.ER PO SCH (09:10)
[2024-12-17] MEDS: buPROPion 150 MG Tab.ER PO SCH (09:10)
[2024-12-17] MEDS: atorvaSTATin 40 MG Tab PO SCH (09:11)
[2024-12-17] MEDS: Tiotropium Bromide 4 GM Inhalation Spray (2.5mcg/1 dose; 10 doses) INH SCH (09:11)
[2024-12-17] MEDS: Multivitamins with Iron/Calcium/Folic Acid/Minerals Tab PO SCH (09:12)
[2024-12-17] MEDS: Fluticasone NASAL Spray 16 GM Bottle NASBOTH SCH (09:12)
[2024-12-17] MEDS: Losartan 50 MG Tab PO SCH (09:14)
[2024-12-17] MEDS: Revefenacin 175 MCG/3 ML Neb Soln INH SCH (09:16)
[2024-12-17] MEDS: Gabapentin 300 MG Cap PO SCH (09:20)
[2024-12-17] MEDS: VANCOmycin 1 GM/200 ML 1 GM in Premix Bag 1 BAG IV SCH (09:40)
[2024-12-17] MEDS: Aspirin 81 MG Tab.EC PO SCH (10:05)
[2024-12-17] MEDS: Enoxaparin 60 MG/0.6 ML Syringe SUBCUT ONE (14:10)
[2024-12-17] MEDS: Non-Formulary Medication 1 Each (Formoterol [Perforomist] 20 MCG/2 ML Neb) INH SCH (21:46)
[2024-12-18] MEDS: Acetaminophen 325 MG Tab PO PRN (02:55)
[2024-12-18] MEDS: Enoxaparin 60 MG/0.6 ML Syringe SUBCUT SCH (05:38)
[2024-12-18 06:57] LABS: BASOPHILS ABSOLUTE AUTO 0.1 x10-3/uL (0.0-0.3); BASOPHILS PERCENT AUTO 1.2 % (0.3-3.8); EOSINOPHILS ABSOLUTE AUTO 0.3 x10-3/uL (0.0-0.6); EOSINOPHILS PERCENT AUTO 4.1 % (0.1-6.8); HEMATOCRIT 37.1 % (38.3-50.1); HEMOGLOBIN 12.5 g/dL (12.9-17.7); LYMPHOCYTES ABSOLUTE AUTO 1.4 x10-3/uL (0.5-4.5); MEAN CORPUSCULAR HEMOGLOBIN 30.3 pg (27.0-33.3); MEAN CORPUSCULAR HGB CONC 33.7 g/dL (28.7-35.3); MONOCYTES ABSOLUTE AUTO 0.7 x10-3/uL (0.0-1.2); MONOCYTES PERCENT AUTO 10.4 % (5.5-15.2); NEUTROPHILS ABSOLUTE AUTO 4.4 x10-3/uL (1.7-6.9); NEUTROPHILS PERCENT AUTO 64.3 % (40.3-71.8); PLATELET COUNT,PLT 304 x10(3)uL (117-477); RED CELL DISTRIBUTION WIDTH 16.8 % (12.4-15.0); WHITE BLOOD CELL COUNT,WBC 6.8 x10-3/uL (3.2-10.1)
[2024-12-18 07:07] LABS: BLOOD UREA NITROGEN,BUN 18 mg/dL (7-18); CALCIUM 9.4 mg/dL (8.6-10.2); CARBON DIOXIDE,CO2 29 mmol/L (21-32); CHLORIDE,CL 100 mmol/L (100-110); CREATININE 1.2 mg/dL (0.70-1.30); EST CRCL DRUG DOSING (CG) 49.83 mL/min; ESTIMATED GFR 65 mL/min (>60); GLUCOSE RANDOM 117 mg/dL (80-116); SODIUM,NA 137 mmol/L (135-145)
[2024-12-18 07:12] LABS: RED BLOOD CELL COUNT 4.12 x10(6)uL (3.90-5.90)
[2024-12-18] MEDS: VANCOmycin 2 GM/400 ML 2 GM in Premix Bag 1 BAG IV SCH (09:13)
[2024-12-18] MEDS: Furosemide 20 MG/2 ML VIAL IVPUSH ONE (09:15)
[2024-12-18] MEDS: Nicotine 14 MG/24 Hr Patch TRDERM SCH (09:27)
[2024-12-19 07:23] LABS: BASOPHILS ABSOLUTE AUTO 0.1 x10-3/uL (0.0-0.3); BASOPHILS PERCENT AUTO 1.3 % (0.3-3.8); BLOOD UREA NITROGEN,BUN 15 mg/dL (7-18); BUN/CREATININE RATIO 13.6 (9-20); CALCIUM 9.5 mg/dL (8.6-10.2); CARBON DIOXIDE,CO2 29 mmol/L (21-32); CHLORIDE,CL 99 mmol/L (100-110); CREATININE 1.1 mg/dL (0.70-1.30); EOSINOPHILS ABSOLUTE AUTO 0.3 x10-3/uL (0.0-0.6); EOSINOPHILS PERCENT AUTO 4.1 % (0.1-6.8); EST CRCL DRUG DOSING (CG) 54.36 mL/min; ESTIMATED GFR 72 mL/min (>60); GLUCOSE RANDOM 130 mg/dL (80-116); HEMOGLOBIN 12.6 g/dL (12.9-17.7); LYMPHOCYTES ABSOLUTE AUTO 1.3 x10-3/uL (0.5-4.5); LYMPHOCYTES PERCENT AUTO 19.5 % (15.8-45.3); MEAN CORPUSCULAR HEMOGLOBIN 30.8 pg (27.0-33.3); MEAN CORPUSCULAR VOLUME 90.4 fL (80.8-98.7); MEAN PLATELET VOLUME 7.7 fL (6.7-11.0); MONOCYTES ABSOLUTE AUTO 0.8 x10-3/uL (0.0-1.2); MONOCYTES PERCENT AUTO 11.7 % (5.5-15.2); NEUTROPHILS ABSOLUTE AUTO 4.2 x10-3/uL (1.7-6.9); NEUTROPHILS PERCENT AUTO 63.4 % (40.3-71.8); PLATELET COUNT,PLT 310 x10(3)uL (117-477); POTASSIUM,K 3.8 mmol/L (3.5-5.3); RED CELL DISTRIBUTION WIDTH 16.3 % (12.4-15.0); SODIUM,NA 135 mmol/L (135-145); WHITE BLOOD CELL COUNT,WBC 6.7 x10-3/uL (3.2-10.1)
[2024-12-19 07:32] LABS: RED BLOOD CELL COUNT 4.09 x10(6)uL (3.90-5.90)
[2024-12-19] MEDS: Cefepime 2 GM Vial IVPUSH SCH (11:30)
[2024-12-19 11:55] VITALS: BP 109/56; PULSE 73
== END 2024-12-19 12:45 | DRG 603 ==
LOC: FB.ED 16:26 → FB.MS 19:40
PROVIDERS: ADMIT Emergency Medicine; ATTEND Internal Medicine
DX: L03.115 Cellulitis of right lower limb (principal); L02.415 Cutaneous abscess of right lower limb; Z68.43 Body mass index [BMI] 50.0-59.9, adult; H54.7 Unspecified visual loss; E78.00 Pure hypercholesterolemia, unspecified; I10 Essential (primary) hypertension; J44.9 Chronic obstructive pulmonary disease, unspecified; K21.9 Gastro-esophageal reflux disease without esophagitis; N40.0 Benign prostatic hyperplasia without lower urinary tract symptoms; M19.90 Unspecified osteoarthritis, unspecified site; G43.909 Migraine, unspecified, not intractable, without status migrainosus; F41.9 Anxiety disorder, unspecified; F32.A Depression, unspecified; E11.9 Type 2 diabetes mellitus without complications; F17.200 Nicotine dependence, unspecified, uncomplicated; M54.9 Dorsalgia, unspecified; G89.29 Other chronic pain; E66.01 Morbid (severe) obesity due to excess calories; G47.33 Obstructive sleep apnea (adult) (pediatric); Z96.651 Presence of right artificial knee joint; R53.1 Weakness; Z85.828 Personal history of other malignant neoplasm of skin; Z90.49 Acquired absence of other specified parts of digestive tract; Z98.890 Other specified postprocedural states; Z91.048 Other nonmedicinal substance allergy status; Z79.899 Other long term (current) drug therapy; Z79.51 Long term (current) use of inhaled steroids; Z79.52 Long term (current) use of systemic steroids; Z86.0100 Personal history of colon polyps, unspecified; Z79.82 Long term (current) use of aspirin; Z79.84 Long term (current) use of oral hypoglycemic drugs; Z79.891 Long term (current) use of opiate analgesic
CPT/HCPCS: 36415; 80053; 83605; 85025; 87040 ×2; 96374; 99284; J0696; 80048; 80202; 82947; 94640; 97165-GO; 97535-GO; 99222; 99231; 99232; 99238; 99285; A9270-GY; J0692; J1650; J1815; J1885; J1938; J3372; J7677

== ENCOUNTER 2025-06-04 09:34 | Emergency (ER) | payer MEDICARE, OTHER ==
[2025-06-04 10:33] LABS: BASOPHILS ABSOLUTE AUTO 0.1 x10-3/uL (0.0-0.3); BASOPHILS PERCENT AUTO 0.7 % (0.3-3.8); EOSINOPHILS ABSOLUTE AUTO 0.1 x10-3/uL (0.0-0.6); EOSINOPHILS PERCENT AUTO 0.5 % (0.1-6.8); LYMPHOCYTES ABSOLUTE AUTO 0.8 x10-3/uL (0.5-4.5); LYMPHOCYTES PERCENT AUTO 8.2 % (15.8-45.3); MEAN PLATELET VOLUME 7.7 fL (6.7-11.0); MONOCYTES ABSOLUTE AUTO 0.8 x10-3/uL (0.0-1.2); MONOCYTES PERCENT AUTO 8.1 % (5.5-15.2); NEUTROPHILS ABSOLUTE AUTO 8.6 x10-3/uL (1.7-6.9); NEUTROPHILS PERCENT AUTO 82.5 % (40.3-71.8); PLATELET COUNT,PLT 307 x10(3)uL (117-477); RED CELL DISTRIBUTION WIDTH 18.6 % (12.4-15.0); WHITE BLOOD CELL COUNT,WBC 10.4 x10-3/uL (3.2-10.1)
[2025-06-04 10:35] LABS: BLOOD UREA NITROGEN,BUN 20 mg/dL (7-18); CARBON DIOXIDE,CO2 31 mmol/L (21-32); CHLORIDE,CL 101 mmol/L (100-110); CREATININE 1.1 mg/dL (0.70-1.30); ESTIMATED GFR 72 mL/min (>60); GLUCOSE RANDOM 189 mg/dL (80-116); POTASSIUM,K 4.4 mmol/L (3.5-5.3); SODIUM,NA 141 mmol/L (135-145)
[2025-06-04 10:42] LABS: RED BLOOD CELL COUNT 4.52 x10(6)uL (3.90-5.90)
[2025-06-04 10:47] LABS: A/G RATIO 0.9; ALANINE AMINOTRANSFERASE,ALT 34 U/L (12-36); ASPARTATE AMNIOTRANSFERASE,AST 19 IU/L (5-25); BILIRUBIN TOTAL 0.4 mg/dL (0.1-1.3); PROTEIN TOTAL,TP 7.9 g/dL (6.0-8.0)
[2025-06-04 10:48] LABS: PRO B-TYPE NATRIUR PEPT,BNPPRO 61.0 pg/mL (<=125)
[2025-06-04 12:38] VITALS: BP 130/74; PULSE 67
== END 2025-06-04 13:55 | disposition home or self-care (01) ==
LOC: FB.ED 09:34
DX: J44.1 Chronic obstructive pulmonary disease with (acute) exacerbation (principal); F17.200 Nicotine dependence, unspecified, uncomplicated; I10 Essential (primary) hypertension; E78.00 Pure hypercholesterolemia, unspecified; K21.9 Gastro-esophageal reflux disease without esophagitis; M19.90 Unspecified osteoarthritis, unspecified site; E11.9 Type 2 diabetes mellitus without complications; E66.9 Obesity, unspecified; Z90.49 Acquired absence of other specified parts of digestive tract; Z91.048 Other nonmedicinal substance allergy status; Z79.82 Long term (current) use of aspirin; Z79.899 Other long term (current) drug therapy; Z79.51 Long term (current) use of inhaled steroids; Z79.84 Long term (current) use of oral hypoglycemic drugs
CPT/HCPCS: 36415; 71250; 80053; 83880; 85025; 86140; 94640; 99285; A9270

== ENCOUNTER 2025-06-18 19:55 | Emergency (ER) | payer MEDICARE ==
[2025-06-18] MEDS ORDERED: Ondansetron 4 MG Tab.DIS PO ONE (19:56)
[2025-06-18] MEDS: Ondansetron 4 MG Tab.DIS PO ONE (20:36)
[2025-06-18 20:59] LABS: BASOPHILS ABSOLUTE AUTO 0.1 x10-3/uL (0.0-0.3); BASOPHILS PERCENT AUTO 0.9 % (0.3-3.8); EOSINOPHILS ABSOLUTE AUTO 0.4 x10-3/uL (0.0-0.6); EOSINOPHILS PERCENT AUTO 2.9 % (0.1-6.8); LYMPHOCYTES ABSOLUTE AUTO 2.5 x10-3/uL (0.5-4.5); LYMPHOCYTES PERCENT AUTO 19.9 % (15.8-45.3); MEAN PLATELET VOLUME 7.8 fL (6.7-11.0); MONOCYTES ABSOLUTE AUTO 1.4 x10-3/uL (0.0-1.2); MONOCYTES PERCENT AUTO 11.2 % (5.5-15.2); NEUTROPHILS ABSOLUTE AUTO 8.3 x10-3/uL (1.7-6.9); NEUTROPHILS PERCENT AUTO 65.1 % (40.3-71.8); PLATELET COUNT,PLT 369 x10(3)uL (117-477); RED BLOOD CELL COUNT 5.08 x10(6)uL (3.90-5.90); RED CELL DISTRIBUTION WIDTH 17.6 % (12.4-15.0); WHITE BLOOD CELL COUNT,WBC 12.7 x10-3/uL (3.2-10.1)
[2025-06-18 21:01] LABS: BASE EXCESS VENOUS,POC 3 mmol/L (-2 - 3+); PCO2 VENOUS,POC 47 mmHg (41-51); PH VENOUS,POC 7.40 pH Units (7.32-7.43)
[2025-06-18 21:05] LABS: BLOOD UREA NITROGEN,BUN 23 mg/dL (7-18); CARBON DIOXIDE,CO2 31 mmol/L (21-32); CHLORIDE,CL 101 mmol/L (100-110); CREATININE 1.1 mg/dL (0.70-1.30); EST CRCL DRUG DOSING (CG) 54.36 mL/min; ESTIMATED GFR 72 mL/min (>60); GLUCOSE RANDOM 107 mg/dL (80-116); POTASSIUM,K 4.2 mmol/L (3.5-5.3); SODIUM,NA 140 mmol/L (135-145)
[2025-06-18 21:11] LABS: A/G RATIO 1.0; ALANINE AMINOTRANSFERASE,ALT 27 U/L (12-36); ASPARTATE AMNIOTRANSFERASE,AST 14 IU/L (5-25); BILIRUBIN TOTAL 0.4 mg/dL (0.1-1.3); PROTEIN TOTAL,TP 7.6 g/dL (6.0-8.0)
[2025-06-18 21:20] LABS: PRO B-TYPE NATRIUR PEPT,BNPPRO 37.0 pg/mL (<=125)
[2025-06-18 21:29] VITALS: BP 114/75; PULSE 87
== END 2025-06-18 21:57 | disposition home or self-care (01) ==
LOC: FB.ED 19:55
DX: J44.9 Chronic obstructive pulmonary disease, unspecified (principal); R10.84 Generalized abdominal pain; R11.0 Nausea; E66.9 Obesity, unspecified; E11.9 Type 2 diabetes mellitus without complications; M19.90 Unspecified osteoarthritis, unspecified site; K21.9 Gastro-esophageal reflux disease without esophagitis; I10 Essential (primary) hypertension; F17.200 Nicotine dependence, unspecified, uncomplicated; E78.00 Pure hypercholesterolemia, unspecified; Z91.048 Other nonmedicinal substance allergy status; Z79.899 Other long term (current) drug therapy; Z79.51 Long term (current) use of inhaled steroids; Z79.82 Long term (current) use of aspirin; Z79.84 Long term (current) use of oral hypoglycemic drugs; Z90.49 Acquired absence of other specified parts of digestive tract
CPT/HCPCS: 36415; 80053; 83735; 83880; 84484; 85025; 86140; 87428-QW; 99285; Q0162